=== PATIENT | male | born 1950 | race Caucasian/White ===

== ENCOUNTER 2022-06-13 11:06 | Emergency (ER) | payer MEDICARE ==
[~2022-06-13] VITALS: Ht 193 cm; Wt 87.1 kg
[2022-06-13 12:00] VITALS: BP 130/73
[2022-06-13] MEDS ORDERED: SODIUM CHLORIDE 0.9% 1,000 ML IV ONE (12:45)
[2022-06-13] MEDS ORDERED: MECLIZINE HCL 25 MG TAB PO ONE (12:45)
== END 2022-06-13 14:08 | disposition left against medical advice (07) ==
LOC: ER 11:06
DX: R42 Dizziness and giddiness (principal); Z53.21 Procedure and treatment not carried out due to patient leaving prior to being seen by health care provider
CPT/HCPCS: 93005

== ENCOUNTER → 2023-09-26 | Outpatient (CLI) | payer MEDICARE ==
[~2023-09-26] VITALS: Ht 193 cm; Wt 86.2 kg
[~2023-09-26] MED LIST: REGADENOSON 0.4 MG/5 ML SYRG IV ONE
== END | disposition home or self-care (01) ==
LOC: XYW 08:37
PROVIDERS: ATTEND Internal Medicine
DX: I44.0 Atrioventricular block, first degree (principal); R00.0 Tachycardia, unspecified; I25.9 Chronic ischemic heart disease, unspecified; R07.9 Chest pain, unspecified
CPT/HCPCS: 78452; 93017; A9500; J2785

== ENCOUNTER → 2023-11-12 | Outpatient (CLI) | payer MEDICARE ==
[2023-11-12 09:42] LABS: Basophils # (auto) 0.1 10 ^3/uL (0-0.2); Eosinophils # (auto) 0.2 10 ^3/uL (0-0.8); Hemoglobin 15.2 g/dL (13.5-17.5); Lymphocytes # (auto) 2.2 10 ^3/uL (0.4-5.4); Neutrophils # (auto) 4.5 10 ^3/uL (1.6-8.6)
[2023-11-12 09:44] LABS: Basophils % (auto) 0.7 % (0.0-2.0); Lymphocytes % (auto) 27.9 % (10.0-50.0); Mean Corpuscular Hemoglobin 36.8 pg (28.0-32.0); Mean Corpuscular Hgb Conc. 35.4 g/dL (32.0-36.0); Monocytes # (auto) 0.9 10 ^3/uL (0-1.3); Monocytes % (auto) 11.3 % (0.0-12.0); Neutrophils % (auto) 57.1 % (37.0-80.0); Red Blood Cells 4.14 10^6/uL (4.5-5.90); Red Cell Distribution Width 12.7 % (11.8-14.3); White Blood Cell 7.8 10^3/uL (4.4-10.8)
[2023-11-12 10:58] LABS: Alanine Aminotransferase 35 U/L (7-40); Alkaline Phosphatase 72 U/L (46-116); Anion Gap 6 (5-15); BUN/Creatinine Ratio 11.6 (10.0-20.0); Blood Urea Nitrogen 10 mg/dL (9-23); Calcium 9.5 mg/dL (8.5-10.1); Carbon Dioxide 27 mmol/L (20-30); Chloride 101 mmol/L (98-107); Glucose 114 mg/dL (74-106); LDL Cholesterol 25 mg/dL (< 100); Potassium 4.5 mmol/L (3.5-5.1); Sodium 134 mmol/L (136-145); Triglycerides 29 mg/dL (< 150)
[2023-11-12 10:59] LABS: Albumin 4.4 g/dL (3.2-4.8); Aspartate Aminotransferase 25 U/L (13-40); Cholesterol 92 mg/dL (< 200); HDL Cholesterol 55 mg/dL (40-59)
[2023-11-12 11:00] LABS: Bilirubin, Total 0.4 mg/dL (0.2-1.0); Total Protein 6.7 g/dL (5.7-8.2)
== END | disposition home or self-care (01) ==
LOC: LAB 09:02
PROVIDERS: ATTEND Internal Medicine
DX: I10 Essential (primary) hypertension (principal); E78.5 Hyperlipidemia, unspecified; I25.10 Atherosclerotic heart disease of native coronary artery without angina pectoris; F17.200 Nicotine dependence, unspecified, uncomplicated
CPT/HCPCS: 36415; 80053; 80061; 83036; 85025

== ENCOUNTER → 2024-01-20 | Outpatient (CLI) | payer MEDICARE ==
[2024-01-20 10:36] LABS: Chloride 98 mmol/L (98-107); Potassium 5.1 mmol/L (3.5-5.1); Sodium 132 mmol/L (136-145)
[2024-01-20 10:37] LABS: Anion Gap 6 (5-15); Calcium 9.5 mg/dL (8.7-10.4); Carbon Dioxide 28 mmol/L (20-30)
[2024-01-20 10:42] LABS: BUN/Creatinine Ratio 14.6 (10.0-20.0); Blood Urea Nitrogen 14 mg/dL (9-23); Glucose 116 mg/dL (74-106)
[2024-01-20 14:10] LABS: Urine Bacteria NONE SEEN /hpf (None Seen); Urine Blood Negative /uL (Negative); Urine Clarity Clear (Clear); Urine Color Yellow (Yellow); Urine Mucus FEW (None Seen); Urine Protein, UAD TRACE (Negative); Urine Specific Gravity 1.019 (1.001-1.035); Urine Urobilinogen Normal (Negative); Urine WBC <1 /hpf (0 - 3); Urine pH 6.5 (5.0-8.0)
== END | disposition home or self-care (01) ==
LOC: LAB 10:08
PROVIDERS: ATTEND Internal Medicine
DX: I25.10 Atherosclerotic heart disease of native coronary artery without angina pectoris (principal); J43.9 Emphysema, unspecified
CPT/HCPCS: 36415; 80048; 81001

== ENCOUNTER → 2024-05-26 | Outpatient (CLI) | payer MEDICARE ==
[2024-05-26 11:46] LABS: Chloride 99 mmol/L (98-107); Potassium 4.4 mmol/L (3.5-5.1); Sodium 131 mmol/L (136-145)
[2024-05-26 11:47] LABS: Anion Gap 4 (5-15); Carbon Dioxide 28 mmol/L (20-30)
[2024-05-26 11:48] LABS: Calcium 9.7 mg/dL (8.5-10.1)
[2024-05-26 11:52] LABS: BUN/Creatinine Ratio 16.9 (10.0-20.0); Blood Urea Nitrogen 15 mg/dL (9-23); Glucose 114 mg/dL (74-106)
== END | disposition home or self-care (01) ==
LOC: LAB 10:52
PROVIDERS: ATTEND Internal Medicine
DX: I10 Essential (primary) hypertension (principal); J44.9 Chronic obstructive pulmonary disease, unspecified; M47.9 Spondylosis, unspecified; I25.10 Atherosclerotic heart disease of native coronary artery without angina pectoris; E55.9 Vitamin D deficiency, unspecified
CPT/HCPCS: 36415; 80048; 82306; 82607

== ENCOUNTER 2024-06-25 17:43 | Emergency (ER) | payer MEDICARE ==
[~2024-06-25] VITALS: Ht 193 cm; Wt 88.5 kg
[2024-06-25 17:50] VITALS: BP 120/68; PULSE 60; RESP 18; O2SAT 95
[2024-06-25 19:11] LABS: Hemoglobin 13.8 g/dL (13.5-17.5); Lymphocytes # (auto) 2.6 10 ^3/uL (0.4-5.4); Neutrophils # (auto) 4.9 10 ^3/uL (1.6-8.6); White Blood Cell 8.8 10^3/uL (4.4-10.8)
[2024-06-25 19:13] LABS: Basophils # (auto) 0 10 ^3/uL (0-0.2); Basophils % (auto) 0.5 % (0.0-2.0); Eosinophils # (auto) 0.1 10 ^3/uL (0-0.8); Eosinophils % (auto) 1.7 % (0.0-7.0); Hematocrit 38.8 % (41.0-53.0); Lymphocytes % (auto) 30.1 % (10.0-50.0); Mean Corpuscular Hemoglobin 36.2 pg (28.0-32.0); Mean Corpuscular Hgb Conc. 35.5 g/dL (32.0-36.0); Mean Corpuscular Volume 102.1 fL (80.0-100.0); Monocytes # (auto) 1.1 10 ^3/uL (0-1.3); Neutrophils % (auto) 55.7 % (37.0-80.0)
== END 2024-06-25 18:42 | disposition left against medical advice (07) ==
LOC: ER 17:43
DX: S41.112A Laceration without foreign body of left upper arm, initial encounter (principal); Z53.21 Procedure and treatment not carried out due to patient leaving prior to being seen by health care provider; W26.8XXA Contact with other sharp object(s), not elsewhere classified, initial encounter; Y93.89 Activity, other specified; Y92.89 Other specified places as the place of occurrence of the external cause; Y99.8 Other external cause status
CPT/HCPCS: 36415; 85025

== ENCOUNTER 2024-06-27 07:59 | Emergency (ER) | payer MEDICARE ==
[~2024-06-27] VITALS: Ht 193 cm; Wt 88.4 kg
[2024-06-27] MEDS ORDERED: CEPH500C PO (09:18)
[2024-06-27 09:30] VITALS: BP 128/64; PULSE 54; RESP 54; TEMP 98.2; O2SAT 99
== END 2024-06-27 09:39 | disposition home or self-care (01) ==
LOC: ER 07:59
DX: S51.812A Laceration without foreign body of left forearm, initial encounter (principal); K21.9 Gastro-esophageal reflux disease without esophagitis; E78.5 Hyperlipidemia, unspecified; I10 Essential (primary) hypertension; Z48.01 Encounter for change or removal of surgical wound dressing; X58.XXXA Exposure to other specified factors, initial encounter; Y93.89 Activity, other specified; Y92.89 Other specified places as the place of occurrence of the external cause; Y99.8 Other external cause status

== ENCOUNTER → 2024-08-17 | Outpatient (CLI) | payer MEDICARE ==
[~2024-08-17] MED LIST changes: +CEPH500C PO; -REGADENOSON 0.4 MG/5 ML SYRG IV ONE
[2024-08-17 14:06] LABS: Triglycerides 37 mg/dL (< 150)
[2024-08-17 14:07] LABS: LDL Cholesterol 23 mg/dL (< 100)
[2024-08-17 14:08] LABS: Cholesterol 97 mg/dL (< 200); HDL Cholesterol 58 mg/dL (40-59)
== END | disposition home or self-care (01) ==
LOC: LAB 11:35
PROVIDERS: ATTEND Internal Medicine
DX: J44.9 Chronic obstructive pulmonary disease, unspecified (principal); M47.9 Spondylosis, unspecified; J43.9 Emphysema, unspecified; I10 Essential (primary) hypertension; Z79.899 Other long term (current) drug therapy
CPT/HCPCS: 36415; 80061; 83036; 84153

== ENCOUNTER → 2024-09-09 | Outpatient (CLI) | payer MEDICARE ==
[2024-09-09 13:30] LABS: Basophils # (auto) 0 10 ^3/uL (0-0.2); Basophils % (auto) 0.8 % (0.0-2.0); Eosinophils # (auto) 0.2 10 ^3/uL (0-0.8); Eosinophils % (auto) 2.6 % (0.0-7.0); Hematocrit 39.1 % (41.0-53.0); Hemoglobin 13.3 g/dL (13.5-17.5); Lymphocytes # (auto) 1.5 10 ^3/uL (0.4-5.4); Mean Corpuscular Hemoglobin 34.8 pg (28.0-32.0); Mean Corpuscular Hgb Conc. 34.1 g/dL (32.0-36.0); Mean Corpuscular Volume 102.1 fL (80.0-100.0); Monocytes % (auto) 15.7 % (0.0-12.0); Neutrophils # (auto) 3.7 10 ^3/uL (1.6-8.6); Neutrophils % (auto) 56.9 % (37.0-80.0); Nucleated Red Blood Cells % 0.2 %; Platelet Count (auto) 228 10^3/uL (140-450); Red Blood Cells 3.83 10^6/uL (4.5-5.90); Red Cell Distribution Width 13.2 % (11.8-14.3); White Blood Cell 6.4 10^3/uL (4.4-10.8)
[2024-09-09 14:05] LABS: Erythrocyte Sedimentation Rate 16 mm/hr (0-20)
== END | disposition home or self-care (01) ==
LOC: LAB 12:12
PROVIDERS: ATTEND Internal Medicine
DX: J44.9 Chronic obstructive pulmonary disease, unspecified (principal); M47.9 Spondylosis, unspecified
CPT/HCPCS: 36415; 82550; 85025; 85652

== ENCOUNTER 2024-11-25 22:39 | Inpatient (IN) | payer MEDICARE ==
[~2024-11-25] VITALS: Ht 198.1 cm; Wt 157.0 kg
--- NOTE | 2024-11-25 22:55 | ED.PDOC ---
HPI Comments A 74 year old male presents to the ED with a chief complaint of chest pain onset 2 days. Patient states he had an ablation done at [place] on Saturday and since then the patient has been experiencing chest pain with shortness of breath. Patient noticed pain worsen today, rates pain 10/10. He took a baby Aspirin this morning. Past medical history of HTN, HLD, GERD. No other symptoms or modifying factors present at this time. Chief Complaint: Chest Pain Time Seen by MD: 22:44 Primary Care Provider: YUDY Reviewed Notes: Medications, Allergies Allergies: Coded Allergies: NO KNOWN ALLERGIES (Unverified , 06/13/22) Home Meds Active Scripts Amoxicillin & Pot Clavulanate (AUGMENTIN TABLET) 875 Mg Tb, 875 MG PO BID for 3 Days, #6 TAB Prov:CLAUDY LANG RESIDENT 11/29/24 Reported Medications Isosorbide Dinitrate (Isosorbide Dinitrate) 10 Mg Tab, 10 MG PO BID, TAB 11/27/24 Enalapril Maleate (Enalapril Maleate) 20 Mg Tab, 20 MG PO BID, TAB 11/27/24 Clopidogrel Bisulfate (CLOPIDOGREL) 75 Mg Tab, 75 MG PO DAILY, TAB 11/27/24 Atorvastatin Calcium (ATORVASTATIN CALCIUM) 40 Mg Tab, 40 MG PO DAILY, TAB 11/27/24 Hydrochlorothiazide (Hydrochlorothiazide) 12.5 Mg Tab, 12.5 MG PO DAILY, TAB 11/27/24 Apixaban Base (ELIQUIS) 5 Mg Tab, 5 MG PO BID, TAB 11/27/24 Amlodipine Besylate (Amlodipine Besylate) 5 Mg Tab, 5 MG PO BID, MG 11/27/24 Amiodarone Hcl (Amiodarone Hcl) 200 Mg Tab, 200 MG PO DAILY 11/27/24 Pantoprazole Sodium Sesquihydr (Pantoprazole Sodium) 40 Mg Tab, 40 MG PO BID, TAB 11/27/24 Information Source: Patient Mode of Arrival: Ambulatory Severity: Moderate Timing: Days Duration: Since onset Prehospital treatment: None Location: Chest (L) Radiation: Shoulder (L) Cardiac Risk Factors: Hyperlipidemia, HTN PE Risk Factors: Other (ablasion 2 dyasa go ) History of: Aspirin Associated Signs and Symptoms: SOB Past Medical History PAST MEDICAL HISTORY: GERD, High Lipids, HTN Surgical History: Denies all surgeries Family History Family History: Reviewed,noncontributory to illness Social History Smoker: Non-Smoker Alcohol: Denies ETOH Use Drugs: Denies Drug Use Lives In: Home Constitutional: denies: chills, diaphoresis, fatigue, fever, malaise, sweats, weakness, others EENTM: denies: blurred vision, double vision, ear bleeding, ear discharge, ear drainage, ear pain, ear ringing, eye pain, eye redness, hearing loss, mouth pain, mouth swelling, nasal discharge, nose bleeding, nose congestion, nose pain, photophobia, tearing, throat pain, throat swelling, voice changes, others Respiratory: reports: shortness of breath; denies: cough, hemoptysis, orthopnea, SOB at rest, SOB with excertion, stridor, wheezing, others Cardiovascular: reports: chest pain; denies: dizzy spells, diaphoresis, Dyspnea on exertion, edema, irregular heart beat, left arm pain, lightheadedness, palpitations, PND, syncope, others Gastrointestinal: denies: abdomen distended, abdominal pain, blood streaked bowels, constipated, diarrhea, dysphagia, difficulty swallowing, hematemesis, melena, nausea, poor appetite, poor fluid intake, rectal bleeding, rectal pain, vomiting, others Genitourinary: denies: burning, dysuria, flank pain, frequency, hematuria, incontinence, penile discharge, penile sore, pain, testicle pain, testicle swelling, urgency, others Neurological: denies: dizziness, fainting, headache, left sided numbness, left sided weakness, numbness, paresthesia, pre-existing deficit, right sided numbness, right sided weakness, seizure, speech problems, tingling, tremors, weakness, others Musculoskeletal: denies: back pain, gout, joint pain, joint swelling, muscle pain, muscle stiffness, neck pain, others Integumetry: denies: bruises, change in color, change in hair/nails, dryness, laceration, lesions, lumps, rash, wounds, others Allergic/Immunocompromised: denies: Difficulty Healing, Frequent Infections, Hives, Itching, others Hematologic/Lymphatic: denies: anemia, blood clots, easy bleeding, easy bruising, swollen glands, others Endocrine: denies: excessive hunger, excessive sweating, excessive thirst, excessive urination, flushing, intolerance to cold, intolerance to heat, unexplained weight gain, unexplained weight loss, others Psychiatric: denies: anxiety, bipolar disorder, depression, hopeless, panic disorder, schizophrenia, sleepless, suicidal, others All Other Systems: Reviewed and Negative Physical Exam General Appearance: No Apparent Distress, Normal HEENT: Normal ENT Inspection, Pharynx Normal, TMs Normal Neck: Full Range of Motion, Non-Tender, Normal, Normal Inspection Respiratory: Chest Non-Tender, Lungs Clear, No Accessory Muscle Use, No Respiratory Distress, Normal Breath Sounds Cardiovascular: No Edema, No JVD, No Murmur, No Gallop, Normal Peripheral Pulses, Regular Rate/Rhythm Breast Exam: Deferred Gastrointestinal: No Organomegaly, Non Tender, No Pulsatile Mass, Normal Bowel Sounds, Soft Genitalia: Deferred Pelvic: Deferred Rectal: Deferred Extremities: No calf tenderness, Normal capillary refill, Normal inspection, Normal range of motion, Non-tender, No pedal edema Musculoskeletal : Apperance: Normal Neurologic: Alert, ambulance paramedic II-XII nml as Tested, No Motor Deficits, Normal Affect, Normal Mood, No Sensory Deficits Cerebellar Function: Normal Reflexes: Normal Skin: Dry, Normal Color, Warm Lymphatic: No Adenopathy Was a procedure done? Was a procedure done?: No CP Differential Dx Differential Diagnosis: MAT, VA Differential Diagnosis: CHF, HTN Essential, HTN Accelerated Differential Diagnosis: Gastritis, Myocardial Infarction, Pericarditis X-Ray, Labs, Meds, VS Vital Signs Date Time Temp Pulse Resp B/P (MAP) Pulse Ox O2 Delivery O2 Flow Rate FiO2 11/26/24 01:12 126/53 11/26/24 01:00 72 19 126/53 (77) 94 11/26/24 00:08 134/60 11/26/24 00:00 98.7 73 18 134/60 (84) 94 98.7 11/26/24 00:00 73 18 94 Nasal Cannula* 2 28 11/26/24 00:00 69 11/25/24 23:41 74 11/25/24 23:08 98.5 79 26 147/74 (98) 83 11/25/24 22:42 76 Lab Test 11/25/24 23:45 11/25/24 22:47 Range/Units Troponin I High Sensitivity 273 *H 280 *H </=54 ng/L White Blood Count 11.3 H 4.4-10.8 10^3/uL Red Blood Count 3.59 L 4.5-5.90 10^6/uL Hemoglobin 11.7 L 13.5-17.5 g/dL Hematocrit 35.4 L 41.0-53.0 % Mean Corpuscular Volume 98.4 80.0-100.0 fL Mean Corpuscular Hemoglobin 32.7 H 28.0-32.0 pg Mean Corpuscular Hemoglobin Concent 33.2 32.0-36.0 g/dL Red Cell Distribution Width 14.8 H 11.8-14.3 % Platelet Count 164 140-450 10^3/uL Mean Platelet Volume 7.7 6.9-10.8 fL Neutrophils (%) (Auto) 65.2 37.0-80.0 % Lymphocytes (%) (Auto) 17.6 10.0-50.0 % Monocytes (%) (Auto) 16.4 H 0.0-12.0 % Eosinophils (%) (Auto) 0.2 0.0-7.0 % Basophils (%) (Auto) 0.6 0.0-2.0 % Neutrophils # (Auto) 7.4 1.6-8.6 10 ^3/uL Lymphocytes # (Auto) 2.0 0.4-5.4 10 ^3/uL Monocytes # (Auto) 1.9 H 0-1.3 10 ^3/uL Eosinophils # (Auto) 0 0-0.8 10 ^3/uL Basophils # (Auto) 0.1 0-0.2 10 ^3/uL Nucleated Red Blood Cells 0.0 % Sodium Level 131 L 136-145 mmol/L Potassium Level 4.1 3.5-5.1 mmol/L Chloride Level 98 98-107 mmol/L Carbon Dioxide Level 27 20-31 mmol/L Anion Gap 6 5-15 Blood Urea Nitrogen 18 9-23 mg/dL Creatinine 0.88 0.700-1.30 mg/dL Glomerular Filtration Rate Calc 90 >90 mL/min BUN/Creatinine Ratio 20.5 H 10.0-20.0 Serum Glucose 114 H 74-106 mg/dL Lactic Acid Level 0.9 0.4-2.0 mmol/L Calcium Level 9.5 8.7-10.4 mg/dL [facility] [id number] [facility] [address] Ph: [phone] DIAGNOSTIC IMAGING Diagnostic Imaging Report : [id number] Signed PATIENT: SATYA RIVERA ACCT: [id number] UNIT: [id number] : 1950 LOC: ER ROOM / BED: / AGE / SEX: 74 / M ADM STATUS: REG ER SERVICE 46 ORDERING PHYSICIAN: IOANA CURIEL MD PROCEDURE(s): CXR2 - CHEST TWO VIEWS ROUTINE REASON: cough ORDER NUMBER(s): [id number], ACCESSION NUMBER(s): [id number] EXAM: XY CHEST TWO VIEWS ROUTINE CLINICAL HISTORY: cough TECHNIQUE: Frontal and lateral view of the chest WID: COMPARISON: None FINDINGS: Lines and tubes: There is a left-sided dual lead pacemaker with the tips projecting over the right atrium and right ventricle. Chest: The heart size and pulmonary vasculature is within normal limits. Calcified plaque projects over the aortic arch. Hyperexpansion of the lungs with diffuse interstitial prominence. The osseous structures are grossly intact. Mild multilevel thoracic spondylosis. IMPRESSION: 1. Hyperexpansion of the lungs which can be seen in the setting of COPD/ emphysema. 2. Interstitial prominence in the lungs which could be due to fibrosis / sc arring, atypical infection, or edema. ATED BY: SRI BELLE MD DICTATED DATE/TIME: 11/26/2414 SIGNED BY: SRI BELLE MD SIGNED DATE/TIME: 11/26/2414 CC: Time of 1ST Reevaluation: 23:14 Reevaluation 1ST: Unchanged Patient Education/Counseling: Diagnosis, Treatment, Prognosis Family Education/Counseling: No Family Present Additional Information I reviewed the following notes from patient's past medical encounters: The following tests were ordered, and results were reviewed by me: TROP, TROP, TROP, EKG, EKG, EKG, BMP, CBC, XY CHEST 2 VIEWS I reviewed and agreed with the following test results read by other providers: XY CHEST 2 VIEWS I discussed treatment and results with medical personnel and: patient Departure 1 Departure Time of Disposition: 21:13 (Patient presented with chest pain that was concerning for possible STEMI, ACS, PE, Pneumonia, Muscle Strain, COPD, Disse ction. Data: 1. I ordered and reviewed the result of at least 3 labs including a CBC, BMP, and Troponin. 2. I independently interpreted the following tests: EKG which shows sinus arrhythmia and Chest X-ray which shows benign chest.Risk:This patient has a high risk of morbidity due to further diagnostic testing or treatment and may suffer from an acute cardiac or respiratory disorder. Workup reveals concern for ACS and patient should be admitted for further workup and possible expert consultation. ) Impression: Primary Impression: Acute chest pain Disposition: ADMITTED INPATIENT Admit to: Med Surg Condition: Serious e-Prescriptions Amoxicillin & Pot Clavulanate (AUGMENTIN TABLET) 875 Mg Tb 875 MG PO BID for 3 Days, #6 TAB Prov: CLAUDY LANG RESIDENT 11/29/24 Critical Care Note Critical Care Time?: Yes Critical care comment: Acute chest pain Authorized and Performed by: Ioana Curiel MD Total critical care time: Approximately 32 minutes Due to a high probability of clinically significant, life threatening deterioration, the patient required my highest level of preparedness to intervene emergently and I personally spent this critical care time directly and personally managing the patient. This critical care time included obtaining a history; examining the patient; pulse oximetry; ordering and review of studies; arranging urgent treatment with development of a management plan; evaluation of patient's response to treatment; frequent reassessment; and, discussions with other providers. This critical care time was performed to assess and manage the high probability of imminent, life-threatening deterioration that could result in multi-organ failure. It was exclusive of separately billable procedures and treating other patients and teaching time. Please see my other sections and the rest of the note for further information on patient assessment and treatment. Stability Stability form required: No Heart Score Heart Score: Heart Score Response (Comments) Value History Highly Suspicious 2 EKG Repolarization Disturb 1 Age >65 2 Risk Factors >3 or Hx ASHD 2 Troponin >3 x's Normal limit 2 Total 9 I personally scribed for IOANA CURIEL MD ([email or web address]) on 11/25/24 at 22:55. Electronically submitted by Virginia Wellington ([email or web address]). I personally scribed for IOANA CURIEL MD ([email or web address]) on 11/25/24 at 23:05. Electronically submitted by Virginia Wellington ([email or web address]). I personally scribed for IOANA CURIEL MD ([email or web address]) on 11/26/24 at 00:19. Electronically submitted by Virginia Wellington ([email or web address]). IOANA CURIEL MD Nov 25, 2024 22:55
[2024-11-25 23:02] LABS: Basophils # (auto) 0.1 10 ^3/uL (0-0.2); Basophils % (auto) 0.6 % (0.0-2.0); Eosinophils # (auto) 0 10 ^3/uL (0-0.8); Eosinophils % (auto) 0.2 % (0.0-7.0); Hematocrit 35.4 % (41.0-53.0); Hemoglobin 11.7 g/dL (13.5-17.5); Lymphocytes % (auto) 17.6 % (10.0-50.0); Mean Corpuscular Hemoglobin 32.7 pg (28.0-32.0); Mean Corpuscular Hgb Conc. 33.2 g/dL (32.0-36.0); Mean Corpuscular Volume 98.4 fL (80.0-100.0); Monocytes # (auto) 1.9 10 ^3/uL (0-1.3); Monocytes % (auto) 16.4 % (0.0-12.0); Neutrophils # (auto) 7.4 10 ^3/uL (1.6-8.6); Neutrophils % (auto) 65.2 % (37.0-80.0); Platelet Count (auto) 164 10^3/uL (140-450); Red Blood Cells 3.59 10^6/uL (4.5-5.90); Red Cell Distribution Width 14.8 % (11.8-14.3); White Blood Cell 11.3 10^3/uL (4.4-10.8)
[2024-11-25 23:15] LABS: Chloride 98 mmol/L (98-107); Potassium 4.1 mmol/L (3.5-5.1)
[2024-11-25 23:16] LABS: Anion Gap 6 (5-15); Carbon Dioxide 27 mmol/L (20-31)
[2024-11-25 23:17] LABS: Calcium 9.5 mg/dL (8.7-10.4)
[2024-11-25 23:21] LABS: BUN/Creatinine Ratio 20.5 (10.0-20.0); Blood Urea Nitrogen 18 mg/dL (9-23)
[2024-11-25 23:23] LABS: Glucose 114 mg/dL (74-106); Sodium 131 mmol/L (136-145)
[2024-11-26] VITALS (12 sets, daily range): BP systolic 107–134; BP diastolic 58–60; PULSE 70–86; RESP 12–19; TEMP 98.3–98.5; O2SAT 93–99
[2024-11-26] MEDS: ASPirin 81 mg TAB PO ONE (00:08)
[2024-11-26] MEDS: NITROGLYCERIN 0.4 MG SL TAB SL ONE (00:08)
--- NOTE | 2024-11-26 00:17 | DVH ---
EXAM: XY CHEST TWO VIEWS ROUTINE CLINICAL HISTORY: cough TECHNIQUE: Frontal and lateral view of the chest WID: COMPARISON: None FINDINGS: Lines and tubes: There is a left-sided dual lead pacemaker with the tips projecting over the right at rium and right ventricle. Chest: The heart size and pulmonary vasculature is within normal limits. Calcified plaque projects over the aortic arch. Hyperexpansion of the lungs with diffuse interstitial prominence. The osseous structures are grossly intact. Mild multilevel thoracic spondylosis. IMPRESSION: 1. Hyperexpansion of the lungs which can be seen in the setting of COPD/ emphysema. 2. Interstitial prominence in the lungs which could be due to fibrosis / scarring, atypical infection , or edema.
--- NOTE | 2024-11-26 01:27 | DVHHPRES ---
History of Present Illness Resident Creating Document: CAITLIN SALAZAR RESIDENT History of Present Illness This is a 74-year-old male with past medical history of hypertension, hyperlipidemia, atrial fibrillation with status post ablation, status post pacemaker, COPD presented to the ED with a chief complaint of chest pain and s hortness of breath since morning prior to this admission. The patient stated that he underwent cardiac ablation for atrial fibrillation in [place] 11/23/20 and after the procedure he has been experiencing intermittent sharp stabbing chest pain, 8/10 radiate to the left shoulder and arm and associated with shortness of bed which was getting worse that prompted this visit. He is complaining of fever, malaise, body pain, runny nose cough with greenish sputum followed by 8-10 episodes of hemoptysis and epistaxis since Saturday. The patient denies headache dizziness, abdominal pain, nausea, vomiting, hematuria, melena, dysuria, sit contact or any change in bowel movement. He also complains of big bruise in the right groin after the angiogram procedure in last Saturday. PCP: Dr. Hendricks Supervisor Fabrication Department: Dr. Hauser Past Medical History Hypertension, hyperlipidemia, atrial fibrillation with status post ablation, status post pacemaker, COPD Past Surgical History Cardiac ablation, pacemaker implantation, cholecystectomy, laparotomy for peritonitis Family History None Past Social History Lives with family Nonsmoker, drinks 4 beers and few glasses of kirti in every weekend and never tried any drugs Review of Systems Constitutional: Yes: Fever, Weakness, Malaise; No: Chills, Sweats, Other Eyes: No: Pain, Vision change, Conjunctivae inflammation, Eyelid inflammation, Other, Redness ENT: No: Ear pain, Ear discharge, Nose pain, Nose discharge, Nose congestion, Mouth pain, Mouth swelling, Throat pain, Throat swelling, Other Respiratory: Cough, Shortness of breath, Wheezing, Hemoptysis, Sputum; No: Dry, SOB with excertion, Pleuritic Pain, Wheezing, Other Cardiovascular: Chest Pain; No: Palpitations, Orthopnea, Paroxysmal Noc. Dyspnea, Edema, Lt Headedness, Other Gastrointestinal: No: Nausea, Vomiting, Abdominal Pain, Diarrhea, Constipation, Melena, Hematochezia, Other Genitourinary: No Dysuria, No Frequency, No Incontinence, No Hematuria, No Retention, No Other Musculoskeletal: No: other, neck pain, shoulder pain, arm pain, back pain, hand pain, leg pain, foot pain Skin: Bruising; No: Rash, Lesions, Jaundice, Other Neurological: No: Weakness, Numbness, Incoordination, Change in speech, Confusion, Seizures, Other Allergies: Coded Allergies: NO KNOWN ALLERGIES (Unverified , 06/13/22) Medications Current Medications Medications Dose Ordered Sig/Gordy Route Start Time Stop Time Status Last Admin Dose Admin Nitroglycerin 0.4 mg Q5MINP PRN SL 11/26/24 01:30 UNV Morphine Sulfate 2 mg Q30M PRN IV 11/26/24 01:30 UNV Methylprednisolone Sodium Succinate 40 mg BID IV 11/26/24 10:00 UNV Cefepime HCl 50 ml @ 12.5 mls/hr DAILY IV 11/26/24 10:00 UNV Vancomycin HCl 0 ml @ 0 mls/hr UD IV 11/26/24 01:30 UNV Albuterol 2.5 mg Q6HR NEB 11/26/24 06:00 Ipratropium Ambler 0.5 mg Q6HR NEB 11/26/24 06:00 Furosemide 20 mg DAILY IV 11/26/24 10:00 UNV Exam Vital Signs Vital Signs Date Time Temp Pulse Resp B/P (MAP) Pulse Ox O2 Delivery O2 Flow Rate FiO2 11/26/24 01:12 126/53 11/26/24 00:00 98.7 73 18 94 98.7 11/26/24 00:00 Nasal Cannula* 2 28 Exam Physical examination: General Appearance: Alert, Oriented X3, Cooperative, mild distress, 3 L oxygen through nasal cannula HEENT: Atraumatic, PERRLA, EOMI, Mucous membrane moist/pink Respiratory: Bilateral wheezing and crackles in both lung field. Cardiovascular: Regular rate, Normal S1, Normal S2, No murmurs, no chest wall tenderness Abdominal: Normal bowel sounds, Soft, No tenderness, No hepatospenomegaly, No masses Extremities: No clubbing, No cyanosis, No edema, Normal pulses, No tenderness/swelling Skin: Big Bruise in the groin after the angiogram and few bruises in bilateral forearm, No rashes, No breakdown, No significant lesion Neuro: Normal gait, Normal speech, Strength at 5/5 X4 ext, Normal tone, Sensation intact, grossly intact cranial nerves. Psych/Mental Status: Mental status NL, Mood NL Labs/Xrays Labs Test 11/25/24 23:45 11/25/24 22:47 Range/Units Troponin I High Sensitivity 273 *H </=54 ng/L White Blood Count 11.3 H 4.4-10.8 10^3/uL Red Blood Count 3.59 L 4.5-5.90 10^6/uL Hemoglobin 11.7 L 13.5-17.5 g/dL Hematocrit 35.4 L 41.0-53.0 % Mean Corpuscular Volume 98.4 80.0-100.0 fL Mean Corpuscular Hemoglobin 32.7 H 28.0-32.0 pg Mean Corpuscular Hemoglobin Concent 33.2 32.0-36.0 g/dL Red Cell Distribution Width 14.8 H 11.8-14.3 % Platelet Count 164 140-450 10^3/uL Mean Platelet Volume 7.7 6.9-10.8 fL Neutrophils (%) (Auto) 65.2 37.0-80.0 % Lymphocytes (%) (Auto) 17.6 10.0-50.0 % Monocytes (%) (Auto) 16.4 H 0.0-12.0 % Eosinophils (%) (Auto) 0.2 0.0-7.0 % Basophils (%) (Auto) 0.6 0.0-2.0 % Neutrophils # (Auto) 7.4 1.6-8.6 10 ^3/uL Lymphocytes # (Auto) 2.0 0.4-5.4 10 ^3/uL Monocytes # (Auto) 1.9 H 0-1.3 10 ^3/uL Eosinophils # (Auto) 0 0-0.8 10 ^3/uL Basophils # (Auto) 0.1 0-0.2 10 ^3/uL Nucleated Red Blood Cells 0.0 % Sodium Level 131 L 136-145 mmol/L Potassium Level 4.1 3.5-5.1 mmol/L Chloride Level 98 98-107 mmol/L Carbon Dioxide Level 27 20-31 mmol/L Anion Gap 6 5-15 Blood Urea Nitrogen 18 9-23 mg/dL Creatinine 0.88 0.700-1.30 mg/dL Glomerular Filtration Rate Calc 90 >90 mL/min BUN/Creatinine Ratio 20.5 H 10.0-20.0 Serum Glucose 114 H 74-106 mg/dL Calcium Level 9.5 8.7-10.4 mg/dL Assessment/Plan Assessment/Plan Assessment and plan: # Chest pain s/p cardiac ablation, rule out ACS # Possible NSTEMI type 2 - EKG revealed AV paced rhythm and RBBB -Troponin trends are 280>273>270 - Ordered echo - Consulted cardiology # Acute respiratory failure due to acute exacerbation of COPD - chest x-ray revealed hyperexpansion with interstitial prominence - BNP is elevated - IV methylprednisolone 125 mg once - IV methylprednisolone 40 mg b.i.d. - IV Lasix 20 mg once - IV Lasix 20 mg daily - Duoneb with albuterol and ipratropium q.6 hours # Community-acquired Gram-positive/Gram-negative pneumonia - Chest x-ray revealed hyperexpansion with interstitial prominence - Cefepime 2 g IV daily and IV vancomycin as per pharmacy # Chronic atrial fibrillation, status post cardiac ablation with secondary hypercoagulable state - Hold Eliquis because of the history of hemoptysis and epistaxis - Ordered PT/INR # Prediabetes, HbA1C 6 - Counseled patient regarding low carb diet, lifestyle modification and physical exercise. # PUD prophylaxis - Protonix 40 mg p.o. daily # DVT prophylaxis - Hold due to the possibility of the bleeding Code status discussed with the patient for more than 17 minutes full code Plan discussed with Dr. Newton Plan discussed with: Patient, Other My Orders Orders - CAITLIN SALAZAR RESIDENT Procedure Category Date Status Time Admit ADMIT 11/26/24 Transmitted 01:17 Nitroglycerin [facility] 11/26/24 Logged Sublingual (Ntrostat 01:30 Morphine Sulfate [facility] 11/26/24 Logged Injection 01:30 Oxygen By Nasal RT 11/26/24 Transmitted Cannula 01:17 Contact Lens Inspector For SHAHANA 11/26/24 In Process 24 Hours 01:17 Rhythm Strips Once [facility] 11/26/24 In Process Every Shift 01:17 B-Type Natriuretic LAB 11/26/24 Logged Peptide 01:17 Echo 2d Mode Cardiac US 11/26/24 Logged DOP 01:17 Methylprednisolone [facility] 11/26/24 Logged Sod Succ (Solu Medrol 01:30 Methylprednisolone [facility] 11/26/24 Logged Sod Succ (Solu Medrol 10:00 Cefepime 2gm/50ml Ns PHA 11/26/24 Logged (Maxipime 2gm/50ml) 10:00 Vancomycin Per PHA 11/26/24 Logged Pharmacy 01:30 Albuterol Medneb [facility] 11/26/24 In Process (Ventolin Medneb) 06:00 Ipratropium Medneb [facility] 11/26/24 In Process (Atrovent Medneb) 06:00 Respiratory Culture LIN 11/26/24 Logged W/ Gs 01:23 Blood Culture LIN 11/26/24 Logged 01:23 Lactic Acid W/ Reflex LAB 11/26/24 Logged Order 01:23 Furosemide Injection [facility] 11/26/24 In Process (Lasix Injection) 01:30 Furosemide Injection PHA 11/26/24 Logged (Lasix Injection) 10:00 Urinalysis LAB 11/26/24 Logged 01:23 Drug Screen LAB 11/26/24 Logged 01:23 Blood Alcohol LAB 11/26/24 Logged 01:23 Complete Blood Count LAB 11/26/24 Transmitted 04:00 Date of Service: Nov 26, 2024 Billing Provider: MARGARITA NEWTON MD Common Visit Codes: 30147-[id number] INP/OBS CARE (HIGH) Secondary Visit Codes: [id number]-[id number] CARE PLAN 30 MINUTES CAITLIN SALAZAR RESIDENT Nov 26, 2024 01:27 MARGARITA NEWTON MD Nov 26, 2024 11:50
[2024-11-26] MEDS ORDERED: NITROGLYCERIN 0.4 MG SL TAB SL PRN (01:30)
[2024-11-26] MEDS ORDERED: VANCOMYCIN PER PHARMACY 0 MG IV SCH (01:30)
[2024-11-26] MEDS: methylPREDNISolone SOD SUCC 125 MG/2 ML VL IV ONE (01:38)
[2024-11-26] MEDS: FUROSEMIDE 20 MG/2 ML VIAL IV ONE (01:38)
[2024-11-26 02:09] LABS: INR 1.25 (0.9-1.15); Partial Thromboplastin Time 34.8 SEC (24.5-34.5)
[2024-11-26 02:13] LABS: Urine Bacteria None Seen /hpf (None Seen)
[2024-11-26 02:23] LABS: Urine Blood Negative /uL (Negative); Urine Clarity Clear (Clear); Urine Color Yellow (Yellow); Urine Protein, UAD TRACE (Negative); Urine Specific Gravity 1.021 (1.001-1.035); Urine Squamous Epithelial Cell FEW /hpf (<5); Urine Urobilinogen 8 mg/dL (Negative); Urine WBC 1 /hpf (0 - 3); Urine pH 7.5 (5.0-9.0)
[2024-11-26 03:06] LABS: COVID19 ANTIGEN SOFIA FIA NEGATIVE (NEGATIVE); Rapid Influenza A Negative (Negative); Rapid Influenza B Negative (Negative)
[2024-11-26 03:14] LABS: Basophils # (auto) 0 10 ^3/uL (0-0.2); Basophils % (auto) 0.3 % (0.0-2.0); Eosinophils # (auto) 0 10 ^3/uL (0-0.8); Eosinophils % (auto) 0.2 % (0.0-7.0); Hematocrit 32.6 % (41.0-53.0); Hemoglobin 11.3 g/dL (13.5-17.5); Lymphocytes # (auto) 1.1 10 ^3/uL (0.4-5.4); Lymphocytes % (auto) 11.2 % (10.0-50.0); Mean Corpuscular Hemoglobin 33.7 pg (28.0-32.0); Mean Corpuscular Hgb Conc. 34.6 g/dL (32.0-36.0); Mean Corpuscular Volume 97.3 fL (80.0-100.0); Monocytes # (auto) 1.2 10 ^3/uL (0-1.3); Monocytes % (auto) 12.4 % (0.0-12.0); Neutrophils # (auto) 7.6 10 ^3/uL (1.6-8.6); Neutrophils % (auto) 75.9 % (37.0-80.0); Platelet Count (auto) 157 10^3/uL (140-450); Red Blood Cells 3.35 10^6/uL (4.5-5.90); Red Cell Distribution Width 14.3 % (11.8-14.3)
[2024-11-26] MEDS: VANCOMYCIN 1GM/250ML KIT 250 ML IV SCH (03:23)
[2024-11-26 04:02] LABS: Opiate Scree,Urine Neg (NEGATIVE)
[2024-11-26 04:06] LABS: Amphetamine Screen, Urine Neg (NEGATIVE); Barbiturate Scree,Urine Neg (NEGATIVE); Benzodiazephine Screen, Urine Neg (NEGATIVE); Cannabinoid Screen, Urine Neg (NEGATIVE); Cocaine Screen, Urine Neg (NEGATIVE); Phencyclidine Screen, Urine Neg (NEGATIVE)
[2024-11-26] MEDS: PANTOPRAZOLE 40 MG TAB PO SCH (06:09)
--- NOTE | 2024-11-26 07:12 | ECG ---
[facility] Test Date: 2024-11-25 Test Time: 23:41:50 Pat Name: SATYA RIVERA Department: ER Room: [address] [place] [address] Gender: M Bioinformatics Associate: : 1950 Requested By: IOANA CURIEL Order Number: [id number] Reading MD: Ramin Page Measurements Intervals Lindsay Rate: 74 P: 20 AL: 61 QRS: 151 QRSD: 164 T: 25 QT: 439 QTc: 487 Interpretive Statements A-V dual-paced rhythm with some inhibition No further analysis attempted due to paced rhythm Electronically Signed On 11-26-2024 14:20:49 PST by Ramin Page Please click the below link to view image of tracing.
[2024-11-26] MEDS: ALBUTEROL SULF 2.5 MG/0.5ML(0.5%) NEB SOLN NEB SCH (09:08)
[2024-11-26] MEDS: IPRATROPIUM BROM 0.5 MG/2.5ML INH SOL NEB SCH (09:08)
[2024-11-26] MEDS: CEFEPIME 2GM/50ML NS 50 ML IV SCH (10:29)
[2024-11-26] MEDS: ASPirin-EC 81 mg tab PO SCH (10:29)
[2024-11-26] MEDS: FUROSEMIDE 20 MG/2 ML VIAL IV SCH (10:30)
--- NOTE | 2024-11-26 12:49 | ECG ---
[facility] Test Date: 2024-11-26 Test Time: 01:48:20 Pat Name: SATYA RIVERA Department: ER Room: [address] [place] [address] Gender: M Nutrition Director: : 1950 Requested By: IOANA CURIEL Order Number: [id number] Reading MD: Ramin Page Measurements Intervals [place]lings Rate: 74 P: 91 AK: 151 QRS: 168 QRSD: 164 T: 47 QT: 438 QTc: 486 Interpretive Statements Atrial-ventricular dual-paced complexes No further analysis attempted due to paced rhythm Electronically Signed On 11-26-2024 14:20:51 PST by Ramin Page Please click the below link to view image of tracing.
--- NOTE | 2024-11-26 14:56 | DVHPNRES ---
Progress Note Date Seen: Nov 26, 2024 Resident Creating Document: OMAR HERRON RESIDENT Medical Necessity Reason Pt with a Central, PICC or Fol: No Subjective Review of Systems Patient is a 74-year-old male with past medical history of hypertension, atrial fibrillation, dyslipidemia, COPD, s/p pacemaker, PCI in 2021, hepatitis-C, who came in due to chest pain. According to the patient, he has been having this chest pain for the last 1-2 weeks off and on. On patient completed an ablation procedure, later that evening he started experiencing discharge chest pain, 8/10 in intensity, sharp and aching pressure-like in quality and localized along the left chest with radiation to the middle of the chest and the left arm. Patient notes that nitroglycerin helped relieve her pain only partially. Patient has also been having shortness of breath, cough, hemoptysis (8 episodes), and epistaxis. Bruising is noted on bilateral forearms. Past surgical history: Appendectomy, cholecystectomy, back surgery Home medications: Eliquis 5 mg b.i.d., enalapril 20 mg b.i.d., atorvastatin 40 mg, amlodipine 5 mg b.i.d., hydrochlorothiazide 12.5 mg, omeprazole 20 mg, aspirin 81 mg Past Hospitalization: 1 week ago for ablation procedure Social & Personal history: Patient lives with his . Quit smoking 10 months ago, prior to that was smoking for 40 years, 20 years cigarettes in 20 years cigars: 3-4 cigars per day. Patient drinks alcohol 3-4 times per week, 3-4 beers with a shot of whiskey. Denies using drugs. Allergies: Denies Patient seen and examined at bedside. Patient is alert and oriented to time, place person and responding to all questions. General: Fatigue, fever, chills Eyes: No Pain, No Vision change, No Conjunctivae inflammation, No Eyelid inflammation, No Other, No Redness ENT: No Ear pain, No Ear discharge, No Nose pain, No Nose discharge, No Nose congestion, No Mouth pain, No Mouth swelling, No Throat pain, No Throat swelling, No Other Cardiovascular: No Chest Pain, No Palpitations, No Orthopnea, Dyspnea, No Edema, No Lt Headedness, No Other Respiratory: Productive Cough, No Dry, Shortness of breath, SOB with exertion, No Wheezing, Hemoptysis, No Pleuritic Pain, No Sputum, No Other Gastrointestinal: No Nausea, No Vomiting, No Abdominal Pain, No Diarrhea, No Constipation, No Melena, No Hematochezia, No Other Genitourinary: No Dysuria, No Frequency, No Incontinence, No Hematuria, No Retention, No Other Musculoskeletal: No other, No neck pain, No shoulder pain, No arm pain, No back pain, No hand pain, No leg pain, No foot pain Skin: No Rash, No Lesions, No Jaundice, Bruising, No Other Objective vital signs Vital Sign Date Time Temp Pulse Resp B/P (MAP) Pulse Ox O2 Delivery O2 Flow Rate FiO2 11/26/24 14:07 80 15 111/42 (65) 95 11/26/24 12:44 Nasal Cannula* 3 32 11/26/24 07:30 97.6 97.6 Total Intake and Output 11/25/24 11/25/24 11/26/24 15:00 23:00 07:00 Intake Total 500 ml Balance 500 ml medications Current Medications Medications Dose Ordered Sig/Gordy Route Start Time Stop Time Status Last Admin Dose Admin Nitroglycerin 0.4 mg Q5MINP PRN SL 11/26/24 01:30 Morphine Sulfate 2 mg Q30M PRN IV 11/26/24 01:30 Methylprednisolone Sodium Succinate 40 mg BID IV 11/27/24 10:00 Cefepime HCl 50 ml @ 12.5 mls/hr Q8H IV 11/26/24 10:00 11/26/24 10:29 12.5 MLS/HR Vancomycin HCl 0 ml @ 0 mls/hr UD IV 11/26/24 01:30 Albuterol 2.5 mg Q6HR NEB 11/26/24 06:00 11/26/24 12:44 2.5 MG Ipratropium [place] 0.5 mg Q6HR NEB 11/26/24 06:00 11/26/24 12:44 0.5 MG Furosemide 20 mg DAILY IV 11/26/24 10:00 11/26/24 10:30 20 MG Aspirin 81 mg DAILY PO 11/26/24 10:00 11/26/24 10:29 81 MG Atorvastatin Calcium 40 mg HS PO 11/26/24 22:00 Pantoprazole Sodium 40 mg DAILY@0630 IV 11/27/24 06:30 Vancomycin HCl 300 ml @ 200 mls/hr Q15H IV 11/26/24 18:00 Examination General Appearance: Cooperative. Well developed. Well nourished. NAD Head Exam: Normal inspection Neck Exam: Normal inspection. Non-tender. Normal alignment Pulmonary/Respiratory: Chest non-tender. Clear bilateral breath sounds, trace crackles, no wheezing. Cardiovascular/Chest: Regular rate and rhythm. No murmurs. No JVD. Peripheral Pulses: 2+ Radial (R). 2+ Radial (L). 2+ Pedal (R). 2+ Pedal (L) Abdominal Exam: Normal bowel sounds. Soft. normal abdomen, no visible veins, m id abdominal tenderness to palpation No hepatospenomegaly. No masses Ankle Exam: Negative ankle edema Lower extremities: 1+ lower extremity edema Neuro/Mental Status: A&O x4. Coherent. Thoughts/Psych: Normal thought pattern. Appropriate mood and affect. Good judgement and insight Skin Exam: Normal inspection. Normal color. Warm. Dry. Bruising on bilateral forearms laboratory and microbiology Laboratory Tests 11/26/24 02:45 11/25/24 22:47 Test 11/25/24 22:47 Range/Units Serum Glucose 114 H 74-106 mg/dL Microbiology Date/Time Source Procedure Growth Status 11/26/24 01:43 Nose MRSA Screen - Final Complete Labs and/or images reviewed: Labs reviewed by me, Image(s) reviewed by me Problem List/Assessment/Plan Problem List/Assessment/Plan Acute respiratory failure likely due to COPD exacerbation versus pneumonia Possible community-acquired pneumonia, Gram-positive versus Gram-negative COPD, possible exacerbation NSTEMI type 2 due to above - CXR: Hyperexpansion of the lungs which can be seen in the setting of COPD/ emphysema. Interstitial prominence in the lungs which could be due to fibrosis / scarring, atypical infection, or edema. - ipratropium albuterol med nebs - IV vancomycin, IV cefepime - IV methylprednisolone 40 mg b.i.d. Chest pain Hypercoagulable state secondary to Atrial fibrillation, s/p ablation S/p pacemaker - aspirin 81 mg - atorvastatin 40 mg - IV furosemide 20 mg Prediabetes, Hb A1c 6 - monitor PUD prophylaxis: protonix 40mg DVT prophylaxis: Levonox 40mg Goals of care: Full code, discussed for >16 minutes on 11/26/24 Plan discussed with patient Plan discussed with Dr. Zhu Plan discussed with: Patient, Spouse, Other (RN) My Orders My Orders Orders - OMAR HERRON Procedure Category Date Status Time Bladder Scan ORDERS 11/26/24 Transmitted 12:20 Date of Service: Nov 26, 2024 Billing Provider: ZHAO ZHU MD Common Visit Codes: [id number] INP/OBS CARE(HIGH) OMAR HERRON Nov 26, 2024 14:56 ZHAO ZHU MD Nov 27, 2024 09:10
[2024-11-26] MEDS: ATORVASTATIN 20 MG TAB PO SCH (21:54)
[2024-11-26] MEDS: HYDROcodone-ACET 5/325MG TAB PO PRN (21:56)
[2024-11-26] MEDS: MELATONIN 5 MG TAB PO ONE (21:56)
[2024-11-26] MEDS: VANCOMYCIN 1.5GM/300ML 300 ML IV SCH (22:00)
[2024-11-27] VITALS (16 sets, daily range): BP systolic 122–132; BP diastolic 58–63; PULSE 67–87; RESP 16–19; TEMP 97.7–98.5; O2SAT 92–99
[2024-11-27] MEDS: PANTOPRAZOLE 40 MG/10 ML VIAL INJ IV SCH (06:08)
[2024-11-27 07:03] LABS: Basophils # (auto) 0 10 ^3/uL (0-0.2); Basophils % (auto) 0.1 % (0.0-2.0); Eosinophils # (auto) 0 10 ^3/uL (0-0.8); Eosinophils % (auto) 0.1 % (0.0-7.0); Hematocrit 32.9 % (41.0-53.0); Hemoglobin 11.4 g/dL (13.5-17.5); Lymphocytes # (auto) 1.4 10 ^3/uL (0.4-5.4); Mean Corpuscular Hemoglobin 33.4 pg (28.0-32.0); Mean Corpuscular Hgb Conc. 34.7 g/dL (32.0-36.0); Mean Corpuscular Volume 96.2 fL (80.0-100.0); Monocytes # (auto) 1.5 10 ^3/uL (0-1.3); Monocytes % (auto) 12.2 % (0.0-12.0); Neutrophils # (auto) 9.1 10 ^3/uL (1.6-8.6); Neutrophils % (auto) 75.6 % (37.0-80.0); Platelet Count (auto) 164 10^3/uL (140-450); Red Blood Cells 3.42 10^6/uL (4.5-5.90); Red Cell Distribution Width 14.1 % (11.8-14.3)
[2024-11-27 07:09] LABS: Chloride 99 mmol/L (98-107)
[2024-11-27 07:10] LABS: Anion Gap 8 (5-15); Calcium 9.5 mg/dL (8.7-10.4); Carbon Dioxide 26 mmol/L (20-31)
[2024-11-27 07:12] LABS: Potassium 3.3 mmol/L (3.5-5.1); Sodium 133 mmol/L (136-145)
[2024-11-27 07:15] LABS: BUN/Creatinine Ratio 28.6 (10.0-20.0)
[2024-11-27 07:17] LABS: Blood Urea Nitrogen 24 mg/dL (9-23); Glucose 145 mg/dL (74-106)
[2024-11-27] MEDS: methylPREDNISolone SOD SUCC 40 MG/ML VL IV SCH (09:21)
--- NOTE | 2024-11-27 13:43 | DVHSR ---
APPROVED REPORT EXAM: Two-dimensional and M-mode echocardiogram with Doppler and color Doppler. INDICATION Tachycardia RISK FACTORS Height: 5'7", Weight: 111 DIMENSIONS LVDd4.9 (3.8-5.7cm)LA (2D)3.9 (1.9-4.0cm)Aortic Root (2.0-3.7cm) LVDs3.3 (2.5-4.0cm)LA (MM) (1.9-4.0cm)Aortic Cusp Exc (1.5-2.0cm) EF (%) 60.0 (55-70%)Rt. Atrium3.3 (1.9-4.0cm)Asc. Aorta cm Mitral Valve MitralMitral Stenosis E/A ratio0.02D MVAcm2 LEFT VENTRICLE The left ventricle is normal size. There is normal left ventricular wall thickness. The left ventricle is normal in structure and function. Left ventricle systolic function is normal. The Ejection Fraction is 55-60%. No regional wall motion abnormalities noted. RIGHT VENTRICLE The right ventricle is normal size. There is normal right ventricular wall thickness. The right ventricular systolic function is normal. ATRIA The left atrium size is normal. The right atrium size is normal. The interatrial septum is intact with no evidence for an atrial septal defect. MITRAL VALVE The mitral valve is normal in structure and function. There is no evidence of mitral valve prolapse. There is no mitral valve stenosis. There is no mitral valve regurgitation noted. PULMONIC VALVE The pulmonary valve is normal in structure and function. There is no pulmonic valvular regurgitation. There is no pulmonic valvular stenosis. TRICUSPID VALVE The tricuspid valve is normal in structure and function. There is no tricuspid valve regurgitation noted. There is no tricuspid valve prolapse or vegetation. There is no tricuspid valve stenosis. AORTIC VALVE The aortic valve is normal in structure and function. No aortic regurgitation is present. There is no aortic valvular stenosis. There is no aortic valvular vegetation. GREAT VESSELS The aortic root is normal in size. PERICARDIAL EFFUSION There is a no pericardial effusion. Other Information Quality : Technically LimitedRhythm : Technically limited study due to body habitus and patient position. Conclusion The left ventricle is normal size. The left ventricle is normal in structure and function. Left ventricle systolic function is normal. The Ejection Fraction is 55-60%. There is no gross valvular pathology. There is a no pericardial effusion.
[2024-11-27] MEDS: IOHEXOL 350 MG/ML 100ML IJ ONE (16:29)
[2024-11-27] MEDS ORDERED: HYDR12.55 PO (16:33)
[2024-11-27] MEDS ORDERED: ISOS10TA2 PO (16:33)
[2024-11-27] MEDS ORDERED: ENAL1TAB48 PO (16:33)
[2024-11-27] MEDS ORDERED: CLOP75TA70 PO (16:33)
[2024-11-27] MEDS ORDERED: PANT40T PO (16:33)
[2024-11-27] MEDS ORDERED: APIX5TAB PO (16:33)
[2024-11-27] MEDS ORDERED: AMLO1TAB22 PO (16:33)
[2024-11-27] MEDS ORDERED: AMIO200T33 PO (16:33)
[2024-11-27] MEDS ORDERED: ATOR40TA52 PO (16:33)
--- NOTE | 2024-11-27 17:08 | DVH ---
INDICATION: sob, on 4L O2 COMPARISON: No cTA's of the chest for comparison. TECHNIQUE: Multidetector CTA of the chest was performed of the chest with 100 cc of intravenous contr ast. PULMONARY ANGIOGRAPHY PROTOCOL was utilized using a bolus-tracking technique centered on the jed n pulmonary artery. Axial, coronal and sagittal multiplanar and MIP reformats were performed. Radiation Dose Information: CT Dose: CTDI volume is 24.9 mGy. Dose-length product is 1032.92 mGy*cm The dose indicators for CT are the volume Computed Tomography (CT) Dose Index (CTDIvol) and the Dose Length Product (DLP), and are measured in units of mGy and mGy-cm, respectively. These indicators are not patient dose, but values generated from the CT scanner acquisition factors. The report includes radiation exposure data for exposures received during this examination. Findings: Pulmonary artery: Normal caliber of the pulmonary artery. No large central or large segmental pulmo nary embolism. Lower neck: Normal thyroid. Lungs: No focal consolidation, pulmonary mass, or suspicious pulmonary nodule. Small bilateral pleura l effusions. Dual-chamber pacemaker in place with pulse generator over the left chest. Heart/Vascular Structures: Normal heart size. Normal caliber and enhancement of the aorta. Scattered coronary artery calcifications. Lymph Nodes: No adenopathy Pleura: No pleural effusion or significant pneumothorax. Musculoskeletal: No acute osseous abnormality. Upper abdomen: Patient is status post cholecystectomy. IMPRESSION: 1. No pulmonary embolism. 2. No findings of pulmonary artery hypertension. 3. Dual-chamber pacemaker in place with pulse generator over the left chest. 4. Small bilateral pleural effusions.
--- NOTE | 2024-11-27 20:49 | DVHPNRES ---
Progress Note Date Seen: Nov 27, 2024 Resident Creating Document: OMAR HERRON RESIDENT Medical Necessity Reason Pt with a Central, PICC or Fol: No Subjective Review of Systems Patient is a 74-year-old male with past medical history of hypertension, atrial fibrillation, dyslipidemia, COPD, s/p pacemaker, PCI in 2021, hepatitis-C, who came in due to chest pain. According to the patient, he has been having this chest pain for the last 1-2 weeks off and on. On patient completed an ablation procedure, later that evening he started experiencing discharge chest pain, 8/10 in intensity, sharp and aching pressure-like in quality and localized along the left chest with radiation to the middle of the chest and the left arm. Patient notes that nitroglycerin helped relieve her pain only partially. Patient has also been having shortness of breath, cough, hemoptysis (8 episodes), and epistaxis. Bruising is noted on bilateral forearms. Past surgical history: Appendectomy, cholecystectomy, back surgery Home medications: Eliquis 5 mg b.i.d., enalapril 20 mg b.i.d., atorvastatin 40 mg, amlodipine 5 mg b.i.d., hydrochlorothiazide 12.5 mg, omeprazole 20 mg, aspirin 81 mg Past Hospitalization: 1 week ago for ablation procedure Social & Personal history: Patient lives with his . Quit smoking 10 months ago, prior to that was smoking for 40 years, 20 years cigarettes in 20 years cigars: 3-4 cigars per day. Patient drinks alcohol 3-4 times per week, 3-4 beers with a shot of whiskey. Denies using drugs. Allergies: Denies Patient seen and examined at bedside. Patient is alert and oriented to time, place person and responding to all questions. Objective vital signs Vital Sign Date Time Temp Pulse Resp B/P (MAP) Pulse Ox O2 Delivery O2 Flow Rate FiO2 11/27/24 19:15 87 16 94 11/27/24 19:06 Nasal Cannula 3.0 11/27/24 19:06 32 11/27/24 16:40 98.0 132/59 (83) 98.0 Total Intake and Output 11/26/24 11/26/24 11/27/24 15:00 23:00 07:00 Intake Total 0 ml 860 ml Balance 0 ml 860 ml medications Current Medications Medications Dose Ordered Sig/Gordy Route Start Time Stop Time Status Last Admin Dose Admin Nitroglycerin 0.4 mg Q5MINP PRN SL 11/26/24 01:30 Morphine Sulfate 2 mg Q30M PRN IV 11/26/24 01:30 Methylprednisolone Sodium Succinate 40 mg BID IV 11/27/24 10:00 11/27/24 09:21 40 MG Albuterol 2.5 mg Q6HR NEB 11/26/24 06:00 11/27/24 19:04 2.5 MG Ipratropium [place] 0.5 mg Q6HR NEB 11/26/24 06:00 11/27/24 19:04 0.5 MG Furosemide 20 mg DAILY IV 11/26/24 10:00 11/27/24 09:23 20 MG Aspirin 81 mg DAILY PO 11/26/24 10:00 11/27/24 09:21 81 MG Atorvastatin Calcium 40 mg HS PO 11/26/24 22:00 11/26/24 21:54 40 MG Pantoprazole Sodium 40 mg DAILY@0630 IV 11/27/24 06:30 11/27/24 06:08 40 MG Acetaminophen/ Hydrocodone Bitart 1 tab Q6HPRN PRN PO 11/26/24 21:30 11/27/24 07:49 1 TAB Ceftriaxone Sodium 50 ml @ 100 mls/hr DAILY@09 IV 11/28/24 09:00 Azithromycin 250 ml @ 125 mls/hr DAILY IV 11/28/24 10:00 Examination General Appearance: Cooperative. Well developed. Well nourished. NAD Head Exam: Normal inspection Neck Exam: Normal inspection. Non-tender. Normal alignment Pulmonary/Respiratory: Chest non-tender. Clear bilateral breath sounds, trace crackles, no wheezing. Cardiovascular/Chest: Regular rate and rhythm. No murmurs. No JVD. Peripheral Pulses: 2+ Radial (R). 2+ Radial (L). 2+ Pedal (R). 2+ Pedal (L) Abdominal Exam: Normal bowel sounds. Soft. normal abdomen, no visible veins, m id abdominal tenderness to palpation No hepatospenomegaly. No masses Ankle Exam: Negative ankle edema Lower extremities: 1+ lower extremity edema Neuro/Mental Status: A&O x4. Coherent. Thoughts/Psych: Normal thought pattern. Appropriate mood and affect. Good judgement and insight Skin Exam: Normal inspection. Normal color. Warm. Dry. Bruising on bilateral forearms laboratory and microbiology Laboratory Tests 11/27/24 05:46 Test 11/27/24 05:46 Range/Units Serum Glucose 145 H 74-106 mg/dL Microbiology Date/Time Source Procedure Growth Status 11/26/24 01:43 Nose MRSA Screen - Final Complete 11/26/24 01:37 Blood Blood Culture - Preliminary NO GROWTH AFTER 24 HOURS OF INCUBATION. Resulted Problem List/Assessment/Plan Problem List/Assessment/Plan Acute respiratory failure likely due to COPD exacerbation versus pneumonia Possible community-acquired pneumonia, Gram-positive versus Gram-negative COPD, possible exacerbation NSTEMI type 2 due to above - CXR: Hyperexpansion of the lungs which can be seen in the setting of COPD/ emphysema. Interstitial prominence in the lungs which could be due to fibrosis / scarring, atypical infection, or edema. - ipratropium albuterol med nebs - IV ceftriaxone, IV azithromycin - IV methylprednisolone 40 mg b.i.d. - ordered CT angiography chest: Chest pain Hypercoagulable state secondary to Atrial fibrillation, s/p ablation S/p pacemaker - aspirin 81 mg - atorvastatin 40 mg - IV furosemide 20 mg Prediabetes, Hb A1c 6 - monitor PUD prophylaxis: protonix 40mg DVT prophylaxis: Levonox 40mg Goals of care: Full code, discussed for >16 minutes on 11/26/24 Plan discussed with patient Plan discussed with Dr. Zhu Plan discussed with: Patient, Other (RN) My Orders My Orders Orders - OMAR HERRON Procedure Category Date Status Time Ct Angio Chest CT 11/27/24 Resulted Contrast 14:34 Communication Order ORDERS 11/27/24 Transmitted 16:27 Ceftriaxone 1gm/50ml PHA 11/28/24 In Process D5w (Rocephin) 09:00 Azithromycin 500mg/ PHA 11/28/24 In Process 250ml (Zithromax 50 10:00 Date of Service: Nov 27, 2024 Billing Provider: ZHAO ZHU MD Common Visit Codes: [id number] INP/OBS CARE(HIGH) OMAR HERRON Nov 27, 2024 20:49 ZHAO ZHU MD Nov 30, 2024 08:28
[2024-11-28] VITALS (20 sets, daily range): BP systolic 104–145; BP diastolic 51–65; PULSE 72–98; RESP 14–20; TEMP 97.7–98.8; O2SAT 93–98
--- NOTE | 2024-11-28 01:28 | DVHINCON2 ---
DATE OF CONSULTATION: 11/27/2024 REFERRING PHYSICIAN: ____. CONSULTING PHYSICIAN: Dr. Ramirez, covering for Dr. Hauser. INDICATION: Shortness of breath and chest pain. HISTORY OF PRESENT ILLNESS: The patient is a 74-year-old male with history of coronary artery disease status post angioplasty in the past, stent to RCA; history of atrial fibrillation, status post ablation few days ago at [facility] by Dr. Asher, history of sick sinus syndrome, status post permanent pacemaker implantation, now presented to the hospital with complaints of chest pain, described the pain as sharp. The patient stated the pain was worse when he takes deep breath. The patient was also complaining of shortness of breath and cough. The cough was productive of blood-tinged sputum. Currently, being treated for underlying pneumonia. His troponin has been mildly elevated with no significant trend up. PAST MEDICAL HISTORY: * CAD, status post angioplasty, stent to the RCA. * Atrial fibrillation, status post ablation few days ago at [facility]. * Hypertension. * Status post permanent pacemaker implantation. MEDICATIONS: Per med rec. ALLERGIES: No known drug allergies. PHYSICAL EXAMINATION: GENERAL: Alert and awake, in no form of cardiopulmonary distress. VITAL SIGNS: Blood pressure 125/62, pulse 72 per minute, saturation 95%. HEENT: No carotid bruits. No jugular venous distention. CHEST: Bilateral air entry, few rhonchi. CARDIOVASCULAR: Precordial and carotid pulses palpable. Normal S1, S2. EXTREMITIES: No peripheral edema. DIAGNOSTIC DATA: Sodium 133, potassium 3.3, creatinine 0.8. Troponin first set ____ third set is 270. White count elevated at 12.0, hemoglobin 11.4 and platelet is 164. ASSESSMENT: * Chest pain, possibly pleuritic in nature, doubt acute coronary syndrome. * Pneumonia. * History of atrial fibrillation, status post ablation few days ago at [facility]. * History of coronary artery disease, status post angioplasty. * Hypokalemia. * Pneumonia. RECOMMENDATIONS: * Continue IV antibiotics. * Continue aspirin. * Continue statin therapy. * Hold Eliquis for now given hemoptysis. * Supplement potassium. * We will review echo once completed. * Continue telemetry monitoring. Thank you for allowing me to participate in the care of this patient. MD JADON Clement/COREY/SHAYAN TID: [id number] RECEIPT: [id number]
[2024-11-28 06:53] LABS: Chloride 98 mmol/L (98-107)
[2024-11-28 06:54] LABS: Anion Gap 9 (5-15); Calcium 9.6 mg/dL (8.7-10.4); Carbon Dioxide 26 mmol/L (20-31)
[2024-11-28 06:59] LABS: BUN/Creatinine Ratio 30.8 (10.0-20.0)
[2024-11-28 07:35] LABS: Basophils # (auto) 0 10 ^3/uL (0-0.2); Eosinophils # (auto) 0 10 ^3/uL (0-0.8); Hematocrit 35.5 % (41.0-53.0); Hemoglobin 12.2 g/dL (13.5-17.5); Lymphocytes # (auto) 0.9 10 ^3/uL (0.4-5.4); Mean Corpuscular Hemoglobin 33.4 pg (28.0-32.0); Mean Corpuscular Hgb Conc. 34.5 g/dL (32.0-36.0); Mean Corpuscular Volume 96.8 fL (80.0-100.0); Monocytes # (auto) 0.8 10 ^3/uL (0-1.3); Monocytes % (auto) 7.1 % (0.0-12.0); Neutrophils # (auto) 9.3 10 ^3/uL (1.6-8.6); Neutrophils % (auto) 84.9 % (37.0-80.0); Platelet Count (auto) 190 10^3/uL (140-450); Red Blood Cells 3.67 10^6/uL (4.5-5.90); Red Cell Distribution Width 14.1 % (11.8-14.3)
[2024-11-28] MEDS: MORPHINE SULFATE INJ 2 MG/ml SYRG IV PRN (08:33)
[2024-11-28] MEDS: POTASSIUM EFFERVESENT TAB 25 MEQ PO ONE (08:45)
[2024-11-28 09:02] LABS: Blood Urea Nitrogen 24 mg/dL (9-23); Glucose 137 mg/dL (74-106); Sodium 133 mmol/L (136-145)
[2024-11-28] MEDS: cefTRIAXone 1GM/50ML D5W 50 ML IV SCH (09:38)
[2024-11-28] MEDS: AZITHROMYCIN 500MG/ 250ML 250 ML IV SCH (10:00)
--- NOTE | 2024-11-28 12:43 | DVHPNRES ---
Progress Note Date Seen: Nov 28, 2024 Resident Creating Document: OMAR HERRON RESIDENT Medical Necessity Reason Pt with a Central, PICC or Fol: No Subjective Review of Systems Patient is a 74-year-old male with past medical history of hypertension, atrial fibrillation, dyslipidemia, COPD, s/p pacemaker, PCI in 2021, hepatitis-C, who came in due to chest pain. According to the patient, he has been having this chest pain for the last 1-2 weeks off and on. On patient completed an ablation procedure, later that evening he started experiencing discharge chest pain, 8/10 in intensity, sharp and aching pressure-like in quality and localized along the left chest with radiation to the middle of the chest and the left arm. Patient notes that nitroglycerin helped relieve her pain only partially. Patient has also been having shortness of breath, cough, hemoptysis (8 episodes), and epistaxis. Bruising is noted on bilateral forearms. Past surgical history: Appendectomy, cholecystectomy, back surgery Home medications: Eliquis 5 mg b.i.d., enalapril 20 mg b.i.d., atorvastatin 40 mg, amlodipine 5 mg b.i.d., hydrochlorothiazide 12.5 mg, omeprazole 20 mg, aspirin 81 mg Past Hospitalization: 1 week ago for ablation procedure Social & Personal history: Patient lives with his . Quit smoking 10 months ago, prior to that was smoking for 40 years, 20 years cigarettes in 20 years cigars: 3-4 cigars per day. Patient drinks alcohol 3-4 times per week, 3-4 beers with a shot of whiskey. Denies using drugs. Allergies: Denies Patient seen and examined at bedside. Patient is alert and oriented to time, place person and responding to all questions. Patient continues to experience episodes of chest pain, specifically after receiving breathing treatment the last for 10-15 minutes and then subsides. Patient notes the pain as 7-8/10. Objective vital signs Vital Sign Date Time Temp Pulse Resp B/P (MAP) Pulse Ox O2 Delivery O2 Flow Rate FiO2 11/28/24 12:32 73 16 96 11/28/24 12:26 Nasal Cannula 2.0 11/28/24 12:26 28 11/28/24 09:38 116/74 11/28/24 09:00 97.7 97.7 Total Intake and Output 12/27/24 12/27/24 12/28/24 15:00 23:00 07:00 Intake Total 900 ml 200 ml Output Total 950 ml Balance -50 ml 200 ml medications Current Medications Medications Dose Ordered Sig/Gordy Route Start Time Stop Time Status Last Admin Dose Admin Nitroglycerin 0.4 mg Q5MINP PRN SL 11/26/24 01:30 Morphine Sulfate 2 mg Q30M PRN IV 11/26/24 01:30 11/28/24 08:33 2 MG Methylprednisolone Sodium Succinate 40 mg BID IV 11/27/24 10:00 11/28/24 09:38 40 MG Albuterol 2.5 mg Q6HR NEB 11/26/24 06:00 11/28/24 12:26 2.5 MG Ipratropium [place] 0.5 mg Q6HR NEB 11/26/24 06:00 11/28/24 12:26 0.5 MG Furosemide 20 mg DAILY IV 11/26/24 10:00 11/28/24 09:38 20 MG Aspirin 81 mg DAILY PO 11/26/24 10:00 11/28/24 09:38 81 MG Atorvastatin Calcium 40 mg HS PO 11/26/24 22:00 11/27/24 21:39 40 MG Pantoprazole Sodium 40 mg DAILY@0630 IV 11/27/24 06:30 11/28/24 05:53 40 MG Acetaminophen/ Hydrocodone Bitart 1 tab Q6HPRN PRN PO 11/26/24 21:30 11/28/24 05:53 1 TAB Ceftriaxone Sodium 50 ml @ 100 mls/hr DAILY@09 IV 11/28/24 09:00 11/28/24 09:38 100 MLS/HR Azithromycin 250 ml @ 125 mls/hr DAILY IV 11/28/24 10:00 11/28/24 10:00 125 MLS/HR Examination General Appearance: Cooperative. Well developed. Well nourished. NAD Head Exam: Normal inspection Neck Exam: Normal inspection. Non-tender. Normal alignment Pulmonary/Respiratory: Chest non-tender. Clear bilateral breath sounds, no crackles, no wheezing. Cardiovascular/Chest: Regular rate and rhythm. No murmurs. No JVD. Peripheral Pulses: 2+ Radial (R). 2+ Radial (L). 2+ Pedal (R). 2+ Pedal (L) Abdominal Exam: Normal bowel sounds. Soft. normal abdomen, no visible veins, m id abdominal tenderness to palpation No hepatospenomegaly. No masses Ankle Exam: Negative ankle edema Lower extremities: 1+ lower extremity edema Neuro/Mental Status: A&O x4. Coherent. Thoughts/Psych: Normal thought pattern. Appropriate mood and affect. Good judgement and insight Skin Exam: Normal inspection. Normal color. Warm. Dry. Bruising on bilateral forearms laboratory and microbiology Laboratory Tests 11/28/24 06:13 Test 11/28/24 06:13 Range/Units Serum Glucose 137 H 74-106 mg/dL Microbiology Date/Time Source Procedure Growth Status 11/26/24 01:43 Nose MRSA Screen - Final Complete 11/26/24 01:37 Blood Blood Culture - Preliminary NO GROWTH AFTER 48 HOURS OF INCUBATION. Resulted Problem List/Assessment/Plan Problem List/Assessment/Plan Acute respiratory failure likely due to COPD exacerbation versus pneumonia Possible community-acquired pneumonia, Gram-positive versus Gram-negative COPD, possible exacerbation NSTEMI type 2 due to above Pleural effusion, bilateral - CXR: Hyperexpansion of the lungs which can be seen in the setting of COPD/ emphysema. Interstitial prominence in the lungs which could be due to fibrosis / scarring, atypical infection, or edema. - ipratropium albuterol med nebs - IV ceftriaxone, IV azithromycin - IV methylprednisolone 40 mg b.i.d. - ordered CT angiography chest: No pulmonary embolism. No findings of pulmonary artery hypertension. Dual-chamber pacemaker in place with pulse generator over the left chest. Small bilateral pleural effusions. Chest pain Hypercoagulable state secondary to Atrial fibrillation, s/p ablation S/p pacemaker - aspirin 81 mg - atorvastatin 40 mg - IV furosemide 20 mg Prediabetes, Hb A1c 6 - monitor PUD prophylaxis: protonix 40mg DVT prophylaxis: Levonox 40mg Goals of care: Full code, discussed for >16 minutes on 11/26/24 Plan discussed with patient Plan discussed with Dr. Newton critical care time 45 mins Plan discussed with: Patient, Other (RN) My Orders My Orders Orders - OMAR HERRON RESIDENT Procedure Category Date Status Time Ct Angio Chest CT 11/27/24 Resulted Contrast 14:34 Communication Order ORDERS 11/27/24 Transmitted 16:27 Ceftriaxone 1gm/50ml PHA 11/28/24 In Process D5w (Rocephin) 09:00 Azithromycin 500mg/ PHA 11/28/24 In Process 250ml (Zithromax 50 10:00 Date of Service: Nov 28, 2024 Billing Provider: MARGARITA NEWTON MD Common Visit Codes: [id number] CARE 30-74 MIN OMRA HERRON Nov 28, 2024 12:43 MARGARITA NEWTON MD Nov 29, 2024 10:39
[2024-11-28] MEDS: MELATONIN 5 MG TAB PO SCH (21:39)
[2024-11-29] VITALS (12 sets, daily range): BP systolic 133–148; BP diastolic 58–75; PULSE 67–83; RESP 16–20; TEMP 97.5–98.2; O2SAT 92–98
[2024-11-29 11:31] LABS: Basophils # (auto) 0 10 ^3/uL (0-0.2); Eosinophils # (auto) 0 10 ^3/uL (0-0.8); Hematocrit 36.6 % (41.0-53.0); Hemoglobin 12.3 g/dL (13.5-17.5); Lymphocytes # (auto) 1.2 10 ^3/uL (0.4-5.4); Lymphocytes % (auto) 9.7 % (10.0-50.0); Mean Corpuscular Hemoglobin 32.8 pg (28.0-32.0); Mean Corpuscular Hgb Conc. 33.7 g/dL (32.0-36.0); Mean Corpuscular Volume 97.4 fL (80.0-100.0); Monocytes # (auto) 1.5 10 ^3/uL (0-1.3); Monocytes % (auto) 12.1 % (0.0-12.0); Neutrophils # (auto) 9.7 10 ^3/uL (1.6-8.6); Neutrophils % (auto) 78.2 % (37.0-80.0); Platelet Count (auto) 219 10^3/uL (140-450); Red Blood Cells 3.76 10^6/uL (4.5-5.90); Red Cell Distribution Width 14.1 % (11.8-14.3); White Blood Cell 12.4 10^3/uL (4.4-10.8)
[2024-11-29 11:37] LABS: Chloride 99 mmol/L (98-107); Potassium 3.9 mmol/L (3.5-5.1)
[2024-11-29 11:38] LABS: Anion Gap 9 (5-15); Calcium 9.9 mg/dL (8.7-10.4); Carbon Dioxide 25 mmol/L (20-31); Sodium 133 mmol/L (136-145)
[2024-11-29 11:43] LABS: BUN/Creatinine Ratio 23.5 (10.0-20.0); Blood Urea Nitrogen 19 mg/dL (9-23)
--- NOTE | 2024-11-29 11:43 | DVHPNRES ---
Progress Note Date Seen: Nov 29, 2024 Resident Creating Document: CLAUDY ALNG RESIDENT Medical Necessity Reason Pt with a Central, PICC or Fol: No Subjective Review of Systems pt seen and examined at bedside, mentioning no new complaints, mentions occasional left sided chest pain, which is sharp in quality. currently on 2L O2, will wean off if patient doesnt desaturate. Objective vital signs Vital Sign Date Time Temp Pulse Resp B/P (MAP) Pulse Ox O2 Delivery O2 Flow Rate FiO2 11/29/24 10:15 94 Room Air* 0 11/29/24 10:06 97.5 78 18 133/58 (83) 97.5 Total Intake and Output 11/28/24 11/28/24 11/29/24 15:00 23:00 07:00 Intake Total 1250 ml 250 ml 400 ml Output Total 350 ml Balance 1250 ml 250 ml 50 ml medications Current Medications Medications Dose Ordered Sig/Gordy Route Start Time Stop Time Status Last Admin Dose Admin Nitroglycerin 0.4 mg Q5MINP PRN SL 11/26/24 01:30 Morphine Sulfate 2 mg Q30M PRN IV 11/26/24 01:30 11/28/24 08:33 2 MG Methylprednisolone Sodium Succinate 40 mg BID IV 11/27/24 10:00 11/29/24 09:47 40 MG Albuterol 2.5 mg Q6HR NEB 11/26/24 06:00 11/29/24 07:24 2.5 MG Ipratropium [place] 0.5 mg Q6HR NEB 11/26/24 06:00 11/29/24 07:24 0.5 MG Furosemide 20 mg DAILY IV 11/26/24 10:00 11/29/24 09:54 20 MG Aspirin 81 mg DAILY PO 11/26/24 10:00 11/29/24 09:48 81 MG Atorvastatin Calcium 40 mg HS PO 11/26/24 22:00 11/28/24 21:39 40 MG Pantoprazole Sodium 40 mg DAILY@0630 IV 11/27/24 06:30 11/29/24 05:43 40 MG Acetaminophen/ Hydrocodone Bitart 1 tab Q6HPRN PRN PO 11/26/24 21:30 11/28/24 05:53 1 TAB Ceftriaxone Sodium 50 ml @ 100 mls/hr DAILY@09 IV 11/28/24 09:00 11/29/24 09:47 100 MLS/HR Azithromycin 250 ml @ 125 mls/hr DAILY IV 11/28/24 10:00 11/28/24 10:00 125 MLS/HR Melatonin 5 mg HS PO 11/28/24 22:00 11/28/24 21:39 5 MG laboratory and microbiology Laboratory Tests 11/29/24 10:40 Test 11/29/24 10:40 Range/Units Serum Glucose Pending Microbiology Date/Time Source Procedure Growth Status 11/26/24 01:43 Nose MRSA Screen - Final Complete 11/26/24 01:37 Blood Blood Culture - Preliminary NO GROWTH AFTER 72 HOURS OF INCUBATION. Resulted CLAUDY LANG RESIDENT Nov 29, 2024 11:43
[2024-11-29 11:47] LABS: Glucose 126 mg/dL (74-106)
[2024-11-29] MEDS ORDERED: FUROSEMIDE 40 MG/4 ML VIAL IV ONE (13:00)
[2024-11-29] MEDS ORDERED: AUG875T PO (15:51)
--- NOTE | 2024-11-29 15:52 | DVHDSRES ---
Discharge Summary Date of Admission Resident Creating Document: CLAUDY LANG Nov 26, 2024 at 01:17 Date of Discharge: Nov 29, 2024 Labs/Diagnostic Data: Laboratory Results Test 11/29/24 10:40 11/27/24 23:27 11/26/24 02:45 11/26/24 01:49 White Blood Count 12.4 10^3/uL (4.4-10.8) Red Blood Count 3.76 10^6/uL (4.5-5.90) Hemoglobin 12.3 g/dL (13.5-17.5) Hematocrit 36.6 % (41.0-53.0) Mean Corpuscular Volume 97.4 fL (80.0-100.0) Mean Corpuscular Hemoglobin 32.8 pg (28.0-32.0) Mean Corpuscular Hemoglobin Concent 33.7 g/dL (32.0-36.0) Red Cell Distribution Width 14.1 % (11.8-14.3) Platelet Count 219 10^3/uL (140-450) Mean Platelet Volume 7.8 fL (6.9-10.8) Neutrophils (%) (Auto) 78.2 % (37.0-80.0) Lymphocytes (%) (Auto) 9.7 % (10.0-50.0) Monocytes (%) (Auto) 12.1 % (0.0-12.0) Eosinophils (%) (Auto) 0.0 % (0.0-7.0) Basophils (%) (Auto) 0.0 % (0.0-2.0) Neutrophils # (Auto) 9.7 10 ^3/uL (1.6-8.6) Lymphocytes # (Auto) 1.2 10 ^3/uL (0.4-5.4) Monocytes # (Auto) 1.5 10 ^3/uL (0-1.3) Eosinophils # (Auto) 0 10 ^3/uL (0-0.8) Basophils # (Auto) 0 10 ^3/uL (0-0.2) Nucleated Red Blood Cells 0.0 % Sodium Level 133 mmol/L (136-145) Potassium Level 3.9 mmol/L (3.5-5.1) Chloride Level 99 mmol/L (98-107) Carbon Dioxide Level 25 mmol/L (20-31) Anion Gap 9 (5-15) Blood Urea Nitrogen 19 mg/dL (9-23) Creatinine 0.81 mg/dL (0.700-1.30) Glomerular Filtration Rate Calc 93 mL/min (>90) BUN/Creatinine Ratio 23.5 (10.0-20.0) Serum Glucose 126 mg/dL (74-106) Calcium Level 9.9 mg/dL (8.7-10.4) Vancomycin Level Trough 12.7 ug/mL (5-10) Hemoglobin A1c 6.0 % A1C (<5.7) Influenza Type A Antigen Negative (Negative) Influenza Type B Antigen Negative (Negative) SARS-CoV-2 Antigen (Rapid) Negative (NEGATIVE) Test 11/26/24 01:43 11/26/24 01:37 11/25/24 22:47 Urine Color Yellow (Yellow) Urine Clarity Clear (Clear) Urine pH 7.5 (5.0-9.0) Urine Specific Joiner 1.021 (1.001-1.035) Urine Protein Trace (Negative) Urine Ketones Negative (Negative) Urine Blood Negative /uL (Negative) Urine Nitrite Negative (Negative) Urine Bilirubin Negative (Negative) Urine Urobilinogen 8 mg/dL (Negative) Urine Leukocyte Esterase Negative /uL (Negative) Urine RBC 2 /hpf (0 - 3) Urine WBC 1 /hpf (0 - 3) Urine Squamous Epithelial Cells Few /hpf (<5) Urine Bacteria None seen /hpf (None Seen) Urine Glucose Normal mg/dL (Normal) Urine Opiates Screen Neg (NEGATIVE) Urine Fentanyl Screen Pos (NEGATIVE) Urine Barbiturates Screen Neg (NEGATIVE) Urine Phencyclidine Screen Neg (NEGATIVE) Urine Amphetamines Screen Neg (NEGATIVE) Urine Benzodiazepines Screen Neg (NEGATIVE) Urine Cocaine Screen Neg (NEGATIVE) Urine Cannabinoids Screen Neg (NEGATIVE) Prothrombin Time 13.0 sec (9.3-11.8) Prothrombin Time INR 1.25 (0.9-1.15) Activated Partial Thromboplast Time 34.8 SEC (24.5-34.5) Troponin I High Sensitivity 270 ng/L (</=54) B-Type Natriuretic Peptide 249.65 pg/mL (0-100) Thyroid Stimulating Hormone (TSH) 0.74 uIU/mL (0.55-4.78) Plasma/Serum Blood Alcohol < 3.0 mg/dL (<10) Lactic Acid Level 0.9 mmol/L (0.4-2.0) Other Laboratory Tests 11/29/24 10:40 Brief Hx & Hospital Course: 74-year-old male with past medical history of hypertension, atrial fibrillation, dyslipidemia, COPD, s/p pacemaker, PCI in 2021, hepatitis-C, who came in due to chest pain. According to the patient, he has been having this chest pain for the last 1-2 weeks off and on. patient recently had an ablation procedure, later that evening he started experiencing discharge chest pain, 8/10 in intensity, sharp and aching pressure-like in quality and localized along the left chest with radiation to the middle of the chest and the left arm. EKG and troponin was ordered, did not show any evidence of acute coronary syndrome. Chest x-ray showed Hyperexpansion of the lungs which can be seen in the setting of COPD/ emphysema. Interstitial prominence in the lungs which could be due to fibrosis / scarring, atypical infection, or edema. Patient was started on nebulization with ipratropium albuterol, IV ceftriaxone and IV azithromycin for possible pneumonia and IV methylprednisolone for possible COPD exacerbation. CT angiography was ordered which revealed No pulmonary embolism. No findings of pulmonary artery hypertension. Dual-chamber pacemaker in place with pulse generator over the left chest. Small bilateral pleural effusions. Patient was started on IV Lasix for small bilateral pleural effusion. Wire Harness Design Engineer was consulted, echocardiogram revealed ejection fraction of 55-60%. He was initially on 2 L of oxygen through nasal cannula which went up to 4 L during the hospital admission, but later improved to room aim. Patient had significant improvement in his symptoms. At the time of discharge, patient had stable vitals, no new complaints. Discharge plan was discussed with the patient and patient was advised to follow up with PCP within one week and rn production within 1-2 weeks. Patient was prescribed on Augmentin for 3 days. Condition at Discharge: Stable Final Diagnosis/Problems List Acute hypoxic respiratory failure likely due to COPD exacerbation/pneumonia Chest pain likely pleuritic pain due to possible community-acquired pneumonia, ruled out ACS ?Community-acquired pneumonia, Gram-positive/Gram-negative NSTEMI type 2 Atrial fibrillation status post recent ablation Hypertension Dyslipidemia Coronary artery disease status post PCI 2021 Hepatitis-C Discharge Disposition: Home Discharge Instruct/Medications Follow Up/Referral: Follow up with PCP/DC clinic within one week and rn production within two weeks Medications: Augmentin Discharge Statement: "Patient was advised to return to the ER or call 911 if any headaches, dizziness, shortness of breath, chest pain, abdominal pain, bleeding, fevers, or worsening of medical condition. Patient was counseled about treatment plan, medications, possible side effects, patientverbalized understanding. All questions were answered to the best of my ability. This discharge took greater then 30 minutes in planning, reviewing documentation, counseling the patient, and discussing with other team members." ASSESSMENT ASSESSMENT Assessment Date of Service: Nov 29, 2024 Billing Provider: MARGARITA DIEGO MD Common Visit Codes: [id number] DISCH DAY >30min CLAUDY LANG RESIDENT Nov 29, 2024 15:52 MARGARITA DIEGO MD Dec 01, 2024 11:19
[2024-11-29] MEDS: FUROSEMIDE 20 MG/2 ML VIAL IV ONE (16:22)
--- NOTE | 2024-12-01 12:31 | ECG ---
[facility] Test Date: 2024-11-25 Test Time: 22:42:49 Pat Name: SATYA RIVERA Department: ER Room: [facility]5T A Gender: M Geological Technician: : 1950 Requested By: IOANA CURIEL Order Number: [id number] Reading MD: Ramin Page Measurements Intervals [place] Rate: 76 P: 88 SD: 160 QRS: 180 QRSD: 163 T: 51 QT: 416 QTc: 468 Interpretive Statements A-V dual-paced rhythm with some inhibition No further analysis attempted due to paced rhythm Electronically Signed On 12-01-2024 17:53:54 PST by Ramin Page Please click the below link to view image of tracing.
== END 2024-11-29 19:07 | disposition home or self-care (01) | DRG 177 ==
LOC: ER 22:39 → TELE 11-26 01:17 → TELE-WESTW 11-26 16:46
PROVIDERS: ADMIT Student in an Organized Health Care Education/Training Program; ATTEND Student in an Organized Health Care Education/Training Program
DX: J15.69 Pneumonia due to other Gram-negative bacteria (principal); I21.A1 Myocardial infarction type 2; J96.00 Acute respiratory failure, unspecified whether with hypoxia or hypercapnia; J44.1 Chronic obstructive pulmonary disease with (acute) exacerbation; I48.20 Chronic atrial fibrillation, unspecified; D68.69 Other thrombophilia; K21.9 Gastro-esophageal reflux disease without esophagitis; I10 Essential (primary) hypertension; I48.91 Unspecified atrial fibrillation; J15.9 Unspecified bacterial pneumonia; I25.10 Atherosclerotic heart disease of native coronary artery without angina pectoris; E87.6 Hypokalemia; Z90.49 Acquired absence of other specified parts of digestive tract; Z95.5 Presence of coronary angioplasty implant and graft; Z95.0 Presence of cardiac pacemaker
CPT/HCPCS: 36415; 71046; 71275; 80048; 80202; 80307; 80320; 81001; 83036; 83605; 83880; 84443; 84484; 85025; 85610; 85730; 87040; 87081; 87426; 87804; 93005; 93306; 94640; 96365; 96375; 97163; G0378; J0692; J2470

== ENCOUNTER → 2025-02-12 | Outpatient (CLI) | payer MEDICARE ==
[~2025-02-12] MED LIST changes: +AMIO200T33 PO; +AMLO1TAB22 PO; +APIX5TAB PO; +ATOR40TA52 PO; +AUG875T PO; -CEPH500C PO; +CLOP75TA70 PO; +ENAL1TAB48 PO; +HYDR12.55 PO; +ISOS10TA2 PO; +PANT40T PO
[2025-02-12 13:50] LABS: Basophils # (auto) 0.1 10 ^3/uL (0-0.2); Basophils % (auto) 0.8 % (0.0-2.0); Eosinophils # (auto) 0 10 ^3/uL (0-0.8); Eosinophils % (auto) 0.6 % (0.0-7.0); Hematocrit 40.7 % (41.0-53.0); Lymphocytes # (auto) 2.2 10 ^3/uL (0.4-5.4); Lymphocytes % (auto) 29.3 % (10.0-50.0); Mean Corpuscular Hemoglobin 33.4 pg (28.0-32.0); Mean Corpuscular Hgb Conc. 34.4 g/dL (32.0-36.0); Mean Corpuscular Volume 97.1 fL (80.0-100.0); Monocytes # (auto) 0.9 10 ^3/uL (0-1.3); Monocytes % (auto) 12.3 % (0.0-12.0); Neutrophils # (auto) 4.3 10 ^3/uL (1.6-8.6); Platelet Count (auto) 235 10^3/uL (140-450); Red Blood Cells 4.19 10^6/uL (4.5-5.90); Red Cell Distribution Width 15.1 % (11.8-14.3); White Blood Cell 7.5 10^3/uL (4.4-10.8)
[2025-02-12 14:17] LABS: LDL Cholesterol 49 mg/dL (< 100); Triglycerides 58 mg/dL (< 150)
[2025-02-12 14:19] LABS: Cholesterol 106 mg/dL (< 200); HDL Cholesterol 43 mg/dL (40-59)
== END | disposition home or self-care (01) ==
LOC: LAB 13:28
PROVIDERS: ATTEND Internal Medicine
DX: I25.10 Atherosclerotic heart disease of native coronary artery without angina pectoris (principal); J44.9 Chronic obstructive pulmonary disease, unspecified; M47.9 Spondylosis, unspecified; R07.9 Chest pain, unspecified; Z79.899 Other long term (current) drug therapy
CPT/HCPCS: 36415; 80061; 82306; 83036; 85025

== ENCOUNTER → 2025-03-04 | Outpatient (CLI) | payer MEDICARE ==
[2025-03-04 11:36] LABS: Alanine Aminotransferase 25 U/L (7-40); Anion Gap 8 (5-15); Aspartate Aminotransferase 23 U/L (13-40); BUN/Creatinine Ratio 16.7 (10.0-20.0); Bilirubin, Total 0.7 mg/dL (0.2-1.0); Blood Urea Nitrogen 16 mg/dL (9-23); Calcium 10.2 mg/dL (8.7-10.4); Carbon Dioxide 26 mmol/L (20-31); Chloride 101 mmol/L (98-107); Potassium 4.6 mmol/L (3.5-5.1); Total Protein 7.4 g/dL (5.7-8.2)
[2025-03-04 11:43] LABS: Albumin 4.9 g/dL (3.2-4.8); Alkaline Phosphatase 118 U/L (46-116); Glucose 114 mg/dL (74-106); Sodium 135 mmol/L (136-145)
== END | disposition home or self-care (01) ==
LOC: LAB 10:53
PROVIDERS: ATTEND Internal Medicine
DX: M79.81 Nontraumatic hematoma of soft tissue (principal)
CPT/HCPCS: 36415; 80053

== ENCOUNTER 2025-06-28 12:02 | Outpatient (CLI) | payer MEDICARE | END 2025-06-28 17:00 | disposition home or self-care (01) | LOC: LAB 12:02 | PROVIDERS: ATTEND Internal Medicine | DX: I10 Essential (primary) hypertension (principal); I48.0 Paroxysmal atrial fibrillation; Z79.899 Other long term (current) drug therapy | CPT/HCPCS: 36415; 82306; 82607; 83036 ==

== ENCOUNTER 2025-07-14 14:29 | Outpatient (CLI) | payer MEDICARE ==
[2025-07-14 14:43] LABS: Hematocrit 37.6 % (41.0-53.0); Hemoglobin 13.0 g/dL (13.5-17.5); Mean Corpuscular Hemoglobin 32.1 pg (28.0-32.0); Mean Corpuscular Volume 93.0 fL (80.0-100.0); Nucleated Red Blood Cells % 0.0 %
== END 2025-07-14 17:00 | disposition home or self-care (01) ==
LOC: LAB 14:29
PROVIDERS: ATTEND Internal Medicine
DX: I48.0 Paroxysmal atrial fibrillation (principal); I25.10 Atherosclerotic heart disease of native coronary artery without angina pectoris; I50.9 Heart failure, unspecified
CPT/HCPCS: 36415; 83880; 85025; 85379

== ENCOUNTER 2025-08-02 20:10 | Inpatient (IN) | payer MEDICARE ==
[~2025-08-02] VITALS: Ht 188 cm; Wt 106.2 kg
--- NOTE | 2025-08-02 20:30 | ED.PDOC ---
History of Present Illness HPI Comments 74 y/o M, with a significant cardiac history, is BIBA for c/c shortness of breath, chest pain, nausea, and vomiting. Per EMS report, patient called fo sudden, unprovoked, and atraumatic onset of symptoms, this evening. Patient was noted to have been found on scene, tripoding, with clear but diminished lung s ounds in bilateral lower lobes. Pain is localized to the right side of his chest, described as sharp in quality, and is nonradiating. En route, patient received NTG, ASA, oxygen, and IV fluids, with relief to chest pain prior to arrival. Patient endorses no recent prior ailments, injuries, sick contacts, travel, strenuous activities, stressors, or further pertinent history or events. Patient has a significant history of AFib s/p cardiac ablation, CAD s/p PCI in 2021, COPD, GERD, HLD, HTN, NSTEMI type II, and pacemaker. He denies any fever, chills, bloody or bilious vomitus, abdominal pain, diarrhea, or further associated symptoms. Time Seen by MD: 20:15 Primary Care Provider: YUDY Reviewed Notes: Nurses Notes, Surface Logging Systems Logger Notes, Medications, Allergies Allergies: Coded Allergies: NO KNOWN ALLERGIES (Unverified , 06/13/22) Home Meds Active Scripts Amoxicillin & Pot Clavulanate (AUGMENTIN TABLET) 875 Mg Tb, 875 MG PO BID for 3 Days, #6 TAB Prov:CLAUDY LANG RESIDENT 11/29/24 Reported Medications Isosorbide Dinitrate (Isosorbide Dinitrate) 10 Mg Tab, 10 MG PO BID, TAB 11/27/24 Enalapril Maleate (Enalapril Maleate) 20 Mg Tab, 20 MG PO BID, TAB 11/27/24 Clopidogrel Bisulfate (CLOPIDOGREL) 75 Mg Tab, 75 MG PO DAILY, TAB 11/27/24 Atorvastatin Calcium (ATORVASTATIN CALCIUM) 40 Mg Tab, 40 MG PO DAILY, TAB 11/27/24 Hydrochlorothiazide (Hydrochlorothiazide) 12.5 Mg Tab, 12.5 MG PO DAILY, TAB 11/27/24 Apixaban Base (ELIQUIS) 5 Mg Tab, 5 MG PO BID, TAB 11/27/24 Amlodipine Besylate (Amlodipine Besylate) 5 Mg Tab, 5 MG PO BID, MG 11/27/24 Amiodarone Hcl (Amiodarone Hcl) 200 Mg Tab, 200 MG PO DAILY 11/27/24 Pantoprazole Sodium Sesquihydr (Pantoprazole Sodium) 40 Mg Tab, 40 MG PO BID, TAB 11/27/24 Information Source: Patient, Emergency Med Personnel Mode of Arrival: EMS Severity: Moderate Timing: Hours Duration: Since onset Prehospital treatment: 12 Lead EKG, ASA, Batch Analyst, IVF, NTG, Oxygen Past Medical History PAST MEDICAL HISTORY: AFIB, CAD, COPD, GERD, High Lipids, HTN, MS (NSTEMI type II ) Past Medical History (Other): Hepatitis C Surgical History: Pacemaker Surgical History (Other): PCI in 2021 Cardiac ablation Family History Family History: Reviewed,noncontributory to illness Social History Smoker: Non-Smoker Alcohol: Denies ETOH Use Drugs: Denies Drug Use Lives In: Home All Other Systems: Reviewed and Negative (Comprehensive systems review obtained and negative except for what is stated in the HPI.) Physical Exam General Appearance: No Apparent Distress, Normal HEENT: Normal ENT Inspection, Pharynx Normal, TMs Normal Neck: Full Range of Motion, Non-Tender, Normal, Normal Inspection Respiratory: Chest Non-Tender, Crackles (bilaterally), No Accessory Muscle Use, No Respiratory Distress, Other (tachpneic) Cardiovascular: No Edema, No JVD, No Murmur, No Gallop, Normal Peripheral Pulses, Regular Rate/Rhythm Breast Exam: Deferred Gastrointestinal: No Organomegaly, Non Tender, No Pulsatile Mass, Normal Bowel Sounds, Soft Genitalia: Deferred Pelvic: Deferred Rectal: Deferred Extremities: No calf tenderness, Normal capillary refill, Normal inspection, Normal range of motion, Non-tender, No pedal edema Musculoskeletal : Apperance: Normal Neurologic: Alert, director market intelligence II-XII nml as Tested, No Motor Deficits, Normal Affect, Normal Mood, No Sensory Deficits Cerebellar Function: Normal Reflexes: Normal Skin: Dry, Normal Color, Warm Lymphatic: No Adenopathy Was a procedure done? Was a procedure done?: No EKG EKG : Pulse Rate (adult): 76 [place]: Normal Cardiac Rhythm: Paced (atrial ) Block: None Hypertrophy: None ST: Normal Differential Dx Considerations may include: Acute COPD exacerbation, PE, MS, ACS, URI, PNA, hypoxic respiratory failure, angina, among others X-Ray, Labs, Meds, VS Vital Signs Date Time Temp Pulse Resp B/P (MAP) Pulse Ox O2 Delivery O2 Flow Rate FiO2 08/02/25 23:33 74 08/02/25 21:06 75 08/02/25 20:30 76 08/02/25 20:21 99.3 74 74 133/67 92 99.3 08/02/25 20:10 76 Lab Test 08/02/25 23:18 08/02/25 21:24 08/02/25 20:30 Range/Units Lactic Acid Level 1.3 0.4-2.0 mmol/L Troponin I High Sensitivity 4 7 4 </=54 ng/L White Blood Count 18.5 H 4.4-10.8 10^3/uL Red Blood Count 4.22 L 4.5-5.90 10^6/uL Hemoglobin 13.3 L 13.5-17.5 g/dL Hematocrit 39.0 L 41.0-53.0 % Mean Corpuscular Volume 92.3 80.0-100.0 fL Mean Corpuscular Hemoglobin 31.5 28.0-32.0 pg Mean Corpuscular Hemoglobin Concent 34.1 32.0-36.0 g/dL Red Cell Distribution Width 14.8 H 11.8-14.3 % Platelet Count 239 140-450 10^3/uL Mean Platelet Volume 7.6 6.9-10.8 fL Neutrophils (%) (Auto) 83.8 H 37.0-80.0 % Lymphocytes (%) (Auto) 6.6 L 10.0-50.0 % Monocytes (%) (Auto) 8.5 0.0-12.0 % Eosinophils (%) (Auto) 0.5 0.0-7.0 % Basophils (%) (Auto) 0.6 0.0-2.0 % Neutrophils # (Auto) 15.5 H 1.6-8.6 10 ^3/uL Lymphocytes # (Auto) 1.2 0.4-5.4 10 ^3/uL Monocytes # (Auto) 1.6 H 0-1.3 10 ^3/uL Eosinophils # (Auto) 0.1 0-0.8 10 ^3/uL Basophils # (Auto) 0.1 0-0.2 10 ^3/uL Nucleated Red Blood Cells 0.0 % Sodium Level 130 L 136-145 mmol/L Potassium Level 4.5 3.5-5.1 mmol/L Chloride Level 98 98-107 mmol/L Carbon Dioxide Level 24 20-31 mmol/L Anion Gap 8 5-15 Blood Urea Nitrogen 14 9-23 mg/dL Creatinine 1.02 0.700-1.30 mg/dL Glomerular Filtration Rate Calc 77 >90 mL/min BUN/Creatinine Ratio 13.7 10.0-20.0 Serum Glucose 116 H 74-106 mg/dL Calcium Level 9.1 8.7-10.4 mg/dL B-Type Natriuretic Peptide 53.18 0-100 pg/mL Current Medications Medications (Trade) Dose Ordered Sig/Gordy Route Start Time Stop Time Status Last Admin Cefepime HCl 50 ml @ 12.5 mls/hr ONCE ONCE IV 08/02/25 22:45 08/03/25 02:44 DC 08/03/25 02:05 Sodium Chloride 1,000 ml @ 1,000 mls/hr Q1H ONCE IV 08/02/25 22:45 08/02/25 23:44 DC 08/02/25 22:45 [place] [id number] Ph: [phone] DIAGNOSTIC IMAGING Diagnostic Imaging Report : [id number] Signed PATIENT: SATYA RIVERA ACCT: [id number] UNIT: [id number] : 1950 LOC: ER ROOM / BED: / AGE / SEX: 74 / M ADM STATUS: REG ER SERVICE 14 ORDERING PHYSICIAN: IOANA CURIEL MD PROCEDURE(s): CXRP - CHEST PORTABLE REASON: sob ORDER NUMBER(s): [id number], ACCESSION NUMBER(s): [id number] CHEST RADIOGRAPH Indication: sob Technique: Single frontal view of the chest was obtained Comparison: CT CT ANGIO CHEST CONTRAST on DOS: 11/27/24, XY CHEST TWO VIEWS ROUTINE on DOS: 11/25/24 FINDINGS: Lines and Tubes: Dual-chamber pacemaker in place Lungs: No focal consolidation. Pleura: No effusion. No pneumothorax. Cardiomediastinal contours: Unremarkable Bones: No acute osseous abnormality. IMPRESSION: 1. No acute cardiopulmonary disease. 2. Significant change from 11/25/2024. ATED BY: LINA WISDOM Jr., DO DICTATED DATE/TIME: 08/02/252044 SIGNED BY: LINA WISDOM Jr., DO SIGNED DATE/TIME: 08/02/252044 CC: Time of 1ST Reevaluation: 20:45 Reevaluation 1ST: Unchanged Patient Education/Counseling: Diagnosis, Treatment Family Education/Counseling: No Family Present SEPSIS Sepsis Screen Physician Orders Chest Portable (08/02/25 20:15) Electrocardigram (08/02/25 23:15) Blood Culture (08/02/25 22:36) Vital Signs Date Time Temp Pulse Resp B/P (MAP) Pulse Ox O2 Delivery O2 Flow Rate FiO2 08/02/25 23:33 74 08/02/25 21:06 75 08/02/25 20:30 76 08/02/25 20:21 99.3 74 74 133/67 92 99.3 08/02/25 20:10 76 Laboratory Tests Test 08/02/25 20:30 08/02/25 23:18 White Blood Count 18.5 10^3/uL (4.4-10.8) H Lactic Acid Level 1.3 mmol/L (0.4-2.0) Medications Medications Dose Ordered Sig/Gordy Route Start Time Stop Time Status Last Admin Dose Admin Cefepime HCl 50 ml @ 12.5 mls/hr ONCE ONCE IV 08/02/25 22:45 08/03/25 02:44 DC 08/03/25 02:05 Sodium Chloride 1,000 ml @ 1,000 mls/hr Q1H ONCE IV 08/02/25 22:45 08/02/25 23:44 DC 08/02/25 22:45 Departure 1 Departure Time of Disposition: 06:12 (Patient presented with chest pain that was concerning for possible STEMI, ACS, PE, Pneumonia, Muscle Strain, COPD, Dissection. Data: 1. I ordered and reviewed the result of at least 3 labs including a CBC, BMP, and Troponin. 2. I independently interpreted the following tests: EKG which shows _ sinus arrhythmia and Chest X-ray which shows benign chest.Risk:This patient has a high risk of morbidity due to further diagnostic testing or treatment and may suffer from an acute cardiac or respiratory disorder. Workup reveals acute chest pain and patient should be admitted for further workup and possible expert consultation. ) Impression: Primary Impression: Acute chest pain Disposition: 09 ADMITTED INPATIENT Admit to: Med Surg Condition: Serious Critical Care Note Critical Care Time?: Yes Critical care comment: Acute chest pain Authorized and Performed by: Ioana Curiel MD Total critical care time: Approximately 38 minutes Due to a high probability of clinically significant, life threatening deterioration, the patient required my highest level of preparedness to intervene emergently and I personally spent this critical care time directly and personally managing the patient. This critical care time included obtaining a history; examining the patient; pulse oximetry; ordering and review of studies; arranging urgent treatment with development of a management plan; evaluation of patient's response to treatment; frequent reassessment; and, discussions with other providers. This critical care time was performed to assess and manage the high probability of imminent, life-threatening deterioration that could result in multi-organ failure. It was exclusive of separately billable procedures and treating other patients and teaching time. Please see my other sections and the rest of the note for further information on patient assessment and treatment. Stability Stability form required: No Heart Score Heart Score: Heart Score Response (Comments) Value History Highly Suspicious 2 EKG Normal 0 Age >65 2 Risk Factors >3 or Hx ASHD 2 Troponin 1-2 x's Normal limit 1 Total 7 I personally scribed for IOANA CURIEL MD ([email or web address]) on 08/02/25 at 20:30. Electronically submitted by Rei Cartwright ([email or web address]). I personally scribed for IOANA CURIEL MD ([email or web address]) on 08/02/25 at 20:57. Electronically submitted by Rei Cartwright ([email or web address]). IOANA CURIEL MD Aug 02, 2025 20:30
[2025-08-02 20:41] LABS: Hematocrit 39.0 % (41.0-53.0); Hemoglobin 13.3 g/dL (13.5-17.5); Mean Corpuscular Hemoglobin 31.5 pg (28.0-32.0); Mean Corpuscular Volume 92.3 fL (80.0-100.0); Nucleated Red Blood Cells % 0.0 %
--- NOTE | 2025-08-02 20:47 | DVH ---
CHEST RADIOGRAPH Indication: sob Technique: Single frontal view of the chest was obtained Comparison: CT CT ANGIO CHEST CONTRAST on DOS: 11/27/24, XY CHEST TWO VIEWS ROUTINE on DOS: 11/25/24 FINDINGS: Lines and Tubes: Dual-chamber pacemaker in place Lungs: No focal consolidation. Pleura: No effusion. No pneumothorax. Cardiomediastinal contours: Unremarkable Bones: No acute osseous abnormality. IMPRESSION: 1. No acute cardiopulmonary disease. 2. Significant change from 11/25/2024.
[2025-08-02 20:51] LABS: Potassium 4.5 mmol/L (3.5-5.1)
[2025-08-02 20:52] LABS: Anion Gap 8 (5-15); Carbon Dioxide 24 mmol/L (20-31)
[2025-08-02 20:53] LABS: Calcium 9.1 mg/dL (8.7-10.4); Chloride 98 mmol/L (98-107); Sodium 130 mmol/L (136-145)
[2025-08-02 20:57] LABS: BUN/Creatinine Ratio 13.7 (10.0-20.0); Blood Urea Nitrogen 14 mg/dL (9-23)
[2025-08-02 20:58] LABS: Glucose 116 mg/dL (74-106)
--- NOTE | 2025-08-02 21:07 | ECG ---
[facility] Test Date: 2025-08-02 Test Time: 21:06:27 Pat Name: SATYA RIVERA Department: ED Room: 0285T Gender: M Binder Lockstitch: JAZZY : 1950 Requested By: IOANA CURIEL Order Number: [id number] Reading MD: Ramin Page Measurements Intervals [place] Rate: 75 P: 0 CA: 120 QRS: 122 QRSD: 145 T: 30 QT: 418 QTc: 467 Interpretive Statements A-V dual-paced complexes w/ some inhibition No further analysis attempted due to paced rhythm Electronically Signed On 08-05-2025 16:59:39 PDT by Ramin Page Please click the below link to view image of tracing.
[2025-08-02] MEDS: SODIUM CHLORIDE 0.9% 1,000 ML IV ONE (22:45)
[2025-08-03] MEDS: CEFEPIME 2GM/50ML NS 50 ML IV ONE (02:05)
--- NOTE | 2025-08-03 02:09 | ECG ---
[facility] Test Date: 2025-08-02 Test Time: 23:33:34 Pat Name: SATYA RIVERA Department: ED Room: 0285T Gender: M Loss Prevention Analyst: JAZZY : 1950 Requested By: IOANA CURIEL Order Number: [id number] Reading MD: Ramin Page Measurements Intervals [place] Rate: 74 P: 37 MO: 206 QRS: 139 QRSD: 142 T: -10 QT: 411 QTc: 456 Interpretive Statements A-V dual-paced rhythm with some inhibition No further analysis attempted due to paced rhythm Electronically Signed On 08-05-2025 17:00:21 PDT by Ramin Page Please click the below link to view image of tracing.
--- NOTE | 2025-08-03 06:28 | ECG ---
[facility] Test Date: 2025-08-02 Test Time: 20:09:42 Pat Name: SATYA RIVERA Department: Room: 0285T Gender: M Guide Rail Cleaner: JAZZY : 1950 Requested By: IOANA CURIEL Order Number: [id number] Reading MD: Ramin Page Measurements Intervals [place] Rate: 76 P: 0 SD: 196 QRS: -79 QRSD: 157 T: 85 QT: 449 QTc: 505 Interpretive Statements Atrial-paced complexes Nonspecific IVCD with LAD LVH with secondary repolarization abnormality Anterior infarct, old Electronically Signed On 08-05-2025 16:59:36 PDT by Ramin Page Please click the below link to view image of tracing.
--- NOTE | 2025-08-03 08:26 | DVHHP2 ---
History of Present Illness Reason for Visit: Chest pain History of Present Illness Tray Faye is a 74-year-old male with past medical history of CVA, hypertension, hyperlipidemia, ND with cardiac stents, coronary artery disease, pacemaker, atrial fibrillation with 2 ablations, and GERD, who came to the hospital for shortness of breath and chest pain. He states the shortness of breath started suddenly and then the chest pain followed. His chest pain is on the left side of his chest and worse when he takes a deep breath. He states he has never been diagnosed with any respiratory diseases, but has recently had 2 episodes, with this being his 3rd, of severe shortness of breath. Patient had a cardiac ablation in November of 2024. Two days after the procedure he was in the hospital for shortness of breath. Last month he went to [place], and was experiencing shortness of breath with hypoxia. ECHO completed here in November of 2024 shows EF of 55-60%. Cardiovascular: AFIB, CAD, HTN, ND, hyperipidemia, Other (Pacemaker) GI: GERD Past Surgical History: Appendectomy, Cholecystectomy, Other (Neck surgery, cardiac ablation x 2, pacemaker,) Smoke: No ALCOHOL: occassional Drugs: None Lives: with Family Domestic Violence: Neg Review of Systems Constitutional: No: Fever, Chills, Sweats, Weakness, Malaise, Other Eyes: No: Pain, Vision change, Conjunctivae inflammation, Eyelid inflammation, Other, Redness ENT: No: Ear pain, Ear discharge, Nose pain, Nose discharge, Nose congestion, Mouth pain, Mouth swelling, Throat pain, Throat swelling, Other Respiratory: Shortness of breath, SOB with excertion; No: Cough, Dry, Wheezing, Hemoptysis, Pleuritic Pain, Sputum, Wheezing, Other Cardiovascular: Chest Pain; No: Palpitations, Orthopnea, Paroxysmal Noc. Dyspnea, Edema, Lt Headedness, Other Gastrointestinal: No: Nausea, Vomiting, Abdominal Pain, Diarrhea, Constipation, Melena, Hematochezia, Other Genitourinary: No Dysuria, No Frequency, No Incontinence, No Hematuria, No Retention, No Other Musculoskeletal: No: other, neck pain, shoulder pain, arm pain, back pain, hand pain, leg pain, foot pain Skin: No: Rash, Lesions, Jaundice, Bruising, Other Neurological: No: Weakness, Numbness, Incoordination, Change in speech, Confusion, Seizures, Other Allergies: Coded Allergies: NO KNOWN ALLERGIES (Unverified , 06/13/22) Medications Current Medications Medications Dose Ordered Sig/Gordy Route Start Time Stop Time Status Last Admin Dose Admin Sodium Chloride 10 ml Q8HR IV 08/03/25 14:00 UNV Acetaminophen/ Hydrocodone Bitart 1 tab Q4HP PRN PO 08/03/25 08:30 UNV Ondansetron HCl 4 mg Q4HP PRN IV 08/03/25 08:30 UNV Docusate Sodium 100 mg BIDPRN PRN PO 08/03/25 08:30 UNV Acetaminophen 650 mg Q6HP PRN PO 08/03/25 08:30 UNV Nitroglycerin 0.4 mg Q5MINP PRN SL 08/03/25 08:30 UNV Morphine Sulfate 2 mg Q30M PRN IV 08/03/25 08:30 UNV Exam Vital Signs Vital Signs Date Time Temp Pulse Resp B/P (MAP) Pulse Ox O2 Delivery O2 Flow Rate FiO2 08/02/25 23:33 74 08/02/25 20:21 99.3 74 133/67 92 99.3 General Appearance: Alert, Oriented X3, Cooperative, moderate distress HEENT: Atraumatic, PERRLA, Mucous membr. moist/pink Respiratory: Other (Diminished breath sounds) Cardiovascular: Regular rate, Normal S1, Normal S2, No murmurs Abdominal: Normal bowel sounds, Soft, No tenderness Extremities: No clubbing, No cyanosis, No edema, Normal pulses, No tenderness /swelling Skin: No rashes, No breakdown, No significant lesion Neuro: Normal gait, Normal speech, Strength at 5/5 X4 ext Psych/Mental Status: Mental status NL, Mood NL Labs/Xrays Labs Test 08/02/25 23:18 08/02/25 20:30 Range/Units Lactic Acid Level 1.3 0.4-2.0 mmol/L Troponin I High Sensitivity 4 </=54 ng/L White Blood Count 18.5 H 4.4-10.8 10^3/uL Red Blood Count 4.22 L 4.5-5.90 10^6/uL Hemoglobin 13.3 L 13.5-17.5 g/dL Hematocrit 39.0 L 41.0-53.0 % Mean Corpuscular Volume 92.3 80.0-100.0 fL Mean Corpuscular Hemoglobin 31.5 28.0-32.0 pg Mean Corpuscular Hemoglobin Concent 34.1 32.0-36.0 g/dL Red Cell Distribution Width 14.8 H 11.8-14.3 % Platelet Count 239 140-450 10^3/uL Mean Platelet Volume 7.6 6.9-10.8 fL Neutrophils (%) (Auto) 83.8 H 37.0-80.0 % Lymphocytes (%) (Auto) 6.6 L 10.0-50.0 % Monocytes (%) (Auto) 8.5 0.0-12.0 % Eosinophils (%) (Auto) 0.5 0.0-7.0 % Basophils (%) (Auto) 0.6 0.0-2.0 % Neutrophils # (Auto) 15.5 H 1.6-8.6 10 ^3/uL Lymphocytes # (Auto) 1.2 0.4-5.4 10 ^3/uL Monocytes # (Auto) 1.6 H 0-1.3 10 ^3/uL Eosinophils # (Auto) 0.1 0-0.8 10 ^3/uL Basophils # (Auto) 0.1 0-0.2 10 ^3/uL Nucleated Red Blood Cells 0.0 % Sodium Level 130 L 136-145 mmol/L Potassium Level 4.5 3.5-5.1 mmol/L Chloride Level 98 98-107 mmol/L Carbon Dioxide Level 24 20-31 mmol/L Anion Gap 8 5-15 Blood Urea Nitrogen 14 9-23 mg/dL Creatinine 1.02 0.700-1.30 mg/dL Glomerular Filtration Rate Calc 77 >90 mL/min BUN/Creatinine Ratio 13.7 10.0-20.0 Serum Glucose 116 H 74-106 mg/dL Calcium Level 9.1 8.7-10.4 mg/dL B-Type Natriuretic Peptide 53.18 0-100 pg/mL CHEST RADIOGRAPH FINDINGS: Lines and Tubes: Dual-chamber pacemaker in place Lungs: No focal consolidation. Pleura: No effusion. No pneumothorax. Cardiomediastinal contours: Unremarkable Bones: No acute osseous abnormality. IMPRESSION: 1. No acute cardiopulmonary disease. 2. Significant change from 11/25/2024. SEPSIS Sepsis Screen Date sepsis recognized/suspect: Aug 02, 2025 Time Sepsis recognized/suspect: 2028 Recent Procedure: No On Antibiotic Therapy: No Respiratory Rate >20: No Heart Rate >90: No Temp<36 C (96.8 F) or >38.3 C: No SBP <90 or MAP <65 mmHG: No New Acute Mental Status Change: No Is the patient on CPAP, BIPAP,: No Physician Orders Admit (08/03/25 08:21) Code Status (08/03/25 08:21) Sodium Chloride Lock (Saline Lock Ns) (08/03/25 14:00) Hydrocodone-Acet 5/325mg Tab ([place] 5/32 (08/03/25 08:30) Ondansetron Hcl (Zofran) (08/03/25 08:30) Docusate Sodium Capsule (Colace Capsule) (08/03/25 08:30) Complete Blood Count (08/04/25 04:00) Comprehensive Metabolic Panel (08/04/25 04:00) Cardiac Diet-2gna,Lofat,Lochol (08/03/25 Breakfast) Condition: Serious (08/03/25 08:21) Acetaminophen Tablet (Tylenol Tablet) (08/03/25 08:30) Nitroglycerin Sublingual (Ntrostat Subli (08/03/25 08:30) Morphine Sulfate Injection (08/03/25 08:30) Stat Ekg For Chest Pain (08/03/25 08:21) Notify Of Changes From Base (08/03/25 08:21) Coal Sample Tester For 24 Hours (08/03/25 08:21) Emergency Dysrhythmia Protocol (08/03/25 08:21) Rhythm Strips Once Every Shift (08/03/25 08:21) Oxygen By Nasal Cannula (08/03/25 08:21) Laboratory Tests Test 08/02/25 20:30 08/02/25 23:18 White Blood Count 18.5 10^3/uL (4.4-10.8) H Lactic Acid Level 1.3 mmol/L (0.4-2.0) Medications Medications Dose Ordered Sig/Gordy Route Start Time Stop Time Status Last Admin Dose Admin Cefepime HCl 50 ml @ 12.5 mls/hr ONCE ONCE IV 08/02/25 22:45 08/03/25 02:44 DC 08/03/25 02:05 12.5 MLS/HR Sodium Chloride 1,000 ml @ 1,000 mls/hr Q1H ONCE IV 08/02/25 22:45 08/02/25 23:44 DC 08/02/25 22:45 1,000 MLS/HR Assessment/Plan Assessment/Plan Assessment: Acute chest pain, Acute respiratory distress with hypoxia, Hypertension, Hyperlipidemia, GERD, Atrial fibrillation, Plan: Admit to Tele, Cardiology consult, Breathing treatments, Supplemental oxygen as needed, IV steroids, Home medications reconciled, Plan discussed with: Patient My Orders Orders - TRESA BLAND Procedure Category Date Status Time Admit ADMIT 08/03/25 Transmitted 08:21 Code Status CODE 08/03/25 Transmitted 08:21 Sodium Chloride Lock PHA 08/03/25 Logged (Saline Lock Ns) 14:00 Hydrocodone-Acet PHA 08/03/25 Logged 5/325mg Tab ([place] 08:30 Ondansetron Hcl PHA 08/03/25 Logged (Zofran) 08:30 Docusate Sodium [facility] 08/03/25 Logged Capsule (Colace 08:30 Complete Blood Count LAB 08/04/25 Verified 04:00 Comprehensive LAB 08/04/25 Verified Metabolic Panel 04:00 Cardiac DIET 08/03/25 Transmitted Diet-2gna,Lofat,Lochol Breakfast Condition: Serious [facility] 08/03/25 In Process 08:21 Acetaminophen Tablet [facility] 08/03/25 Logged (Tylenol Tablet) 08:30 Nitroglycerin PHA 08/03/25 Logged Sublingual (Ntrostat 08:30 Morphine Sulfate [facility] 08/03/25 Logged Injection 08:30 Stat Ekg For Chest [facility] 08/03/25 In Process Pain 08:21 Notify Of Changes [facility] 08/03/25 In Process From Base 08:21 Coal Sample Tester For [facility] 08/03/25 In Process 24 Hours 08:21 Emergency Dysrhythmia [facility] 08/03/25 In Process Protocol 08:21 Rhythm Strips Once [facility] 08/03/25 In Process Every Shift 08:21 Oxygen By Nasal RT 08/03/25 Transmitted Cannula 08:21 Date of Service: Aug 03, 2025 Billing Provider: TRESA BLAND Common Visit Codes: [id number] INP/OBS CARE (MOD) TRESA BLAND Aug 03, 2025 08:26
[2025-08-03] MEDS ORDERED: IPRATROPIUM BROM 0.5 MG/2.5ML INH SOL NEB PRN (08:30)
[2025-08-03] MEDS ORDERED: HYDROcodone-ACET 5/325MG TAB PO PRN (08:30)
[2025-08-03] MEDS ORDERED: ACETAMINOPHEN 325 MG TAB PO PRN (08:30)
[2025-08-03] MEDS ORDERED: ALBUTEROL SULF 2.5 MG/0.5ML(0.5%) NEB SOLN NEB PRN (08:30)
[2025-08-03] MEDS ORDERED: DOCUSATE SOD 100 MG CAP PO PRN (08:30)
[2025-08-03] MEDS ORDERED: ONDANSETRON HCL 4 MG/2 ML VIAL IV PRN (08:30)
[2025-08-03] MEDS ORDERED: PATIENTS OWN MEDICATION (Atorvastatin Calcium 40 MG) PO SCH (10:00)
[2025-08-03] MEDS ORDERED: ENALAPRIL MALEATE 20 MG PO SCH (10:00)
[2025-08-03] MEDS ORDERED: PATIENTS OWN MEDICATION (Hydrochlorothiazide 12.5 MG) PO SCH (10:00)
[2025-08-03] MEDS: SODIUM CHLOR 0.9% PF (SALINE LOCK) 10ML VIAL/SYR IV SCH (14:00)
[2025-08-03] MEDS: PANTOPRAZOLE 40 MG TAB PO SCH (14:43)
[2025-08-03] MEDS: APIXABAN 5 MG TAB PO SCH (14:45)
[2025-08-03] MEDS: methylPREDNISolone SOD SUCC 40 MG/ML VL IV SCH (14:52)
[2025-08-03 21:55] LABS: Urine Protein, UAD TRACE (Negative)
[2025-08-03 22:40] VITALS: BP 145/74; PULSE 81; RESP 18; TEMP 98.7; O2SAT 96
[2025-08-03 22:52] VITALS: BP 145/74; PULSE 81; RESP 18; TEMP 98.4; O2SAT 96
[2025-08-03] MEDS: ATORVASTATIN 20 MG TAB PO SCH (23:06)
[2025-08-03] MEDS: ENALAPRIL MALEATE 10 MG TAB PO SCH (23:08)
[2025-08-04] VITALS (14 sets, daily range): BP systolic 126–148; BP diastolic 67–85; PULSE 70–84; RESP 18–20; TEMP 97–98.6; O2SAT 96–99
[2025-08-04 06:26] LABS: Hematocrit 36.2 % (41.0-53.0); Hemoglobin 12.5 g/dL (13.5-17.5); Mean Corpuscular Hemoglobin 32.0 pg (28.0-32.0); Mean Corpuscular Volume 92.3 fL (80.0-100.0); Nucleated Red Blood Cells % 0.0 %
[2025-08-04 06:36] LABS: Alanine Aminotransferase 20 U/L (7-40); Albumin 4.5 g/dL (3.2-4.8); Alkaline Phosphatase 92 U/L (46-116); Anion Gap 9 (5-15); Calcium 9.3 mg/dL (8.7-10.4); Carbon Dioxide 23 mmol/L (20-31); Chloride 101 mmol/L (98-107); Potassium 4.5 mmol/L (3.5-5.1); Total Protein 6.9 g/dL (5.7-8.2)
[2025-08-04 06:37] LABS: Bilirubin, Total 0.5 mg/dL (0.2-1.0)
[2025-08-04 07:10] LABS: Glucose 163 mg/dL (74-106); Sodium 133 mmol/L (136-145)
--- NOTE | 2025-08-04 07:49 | DVHINCON2 ---
Date of service: Aug 04, 2025 History of Present Illness 74 yo M with hx of cad s/p pci to oRCA with now RCA CLINICAL RESEARCH DIRECTOR done at [facility], hx of ppm , hx of afib s/p ablation x 2 at [facility] EP group admitted for chest pain and sob. trops are -. pt was planned for lexiscan next week Past Medical History reviewed Family History: FH: [place] (myocardial infarction) G8 MOTHER, G8 FATHER, Allergies: Coded Allergies: NO KNOWN ALLERGIES (Unverified , 06/13/22) Home Meds Reported Medications Isosorbide Dinitrate (Isosorbide Dinitrate) 10 Mg Tab, 10 MG PO BID, TAB 11/27/24 Enalapril Maleate (Enalapril Maleate) 20 Mg Tab, 20 MG PO BID, TAB 11/27/24 Clopidogrel Bisulfate (CLOPIDOGREL) 75 Mg Tab, 75 MG PO DAILY, TAB 11/27/24 Atorvastatin Calcium (ATORVASTATIN CALCIUM) 40 Mg Tab, 40 MG PO DAILY, TAB 11/27/24 Hydrochlorothiazide (Hydrochlorothiazide) 12.5 Mg Tab, 12.5 MG PO DAILY, TAB 11/27/24 Apixaban Base (ELIQUIS) 5 Mg Tab, 5 MG PO BID, TAB 11/27/24 Amlodipine Besylate (Amlodipine Besylate) 5 Mg Tab, 5 MG PO BID, MG 11/27/24 Amiodarone Hcl (Amiodarone Hcl) 200 Mg Tab, 200 MG PO DAILY 11/27/24 Pantoprazole Sodium Sesquihydr (Pantoprazole Sodium) 40 Mg Tab, 40 MG PO BID, TAB 11/27/24 Discontinued Scripts Amoxicillin & Pot Clavulanate (AUGMENTIN TABLET) 875 Mg Tb, 875 MG PO BID for 3 Days, #6 TAB Prov:CLAUDY LANG RESIDENT 11/29/24 Current Medications Current Medications Medications (Trade) Dose Ordered Sig/Gordy Route PRN Reason Start Time Stop Time Status Last Admin Sodium Chloride (Saline Lock Ns) 10 ml Q8HR IV 08/03/25 14:00 08/04/25 06:34 Acetaminophen/ Hydrocodone Bitart ([place] 5/325MG Tab) 1 tab Q4HP PRN PO MODERATE PAIN (4-6 PAIN SCALE) 08/03/25 08:30 Ondansetron HCl (Zofran) 4 mg Q4HP PRN IV NAUSEA / VOMITING 08/03/25 08:30 Docusate Sodium (Colace Capsule) 100 mg BIDPRN PRN PO FOR CONSTIPATION 08/03/25 08:30 Acetaminophen (Tylenol Tablet) 650 mg Q6HP PRN PO PAIN SCALE 1-3 OR TEMP>100.4 08/03/25 08:30 Nitroglycerin (Ntrostat Sublingual) 0.4 mg Q5MINP PRN SL FOR CHEST PAIN 08/03/25 08:30 Morphine Sulfate 2 mg Q30M PRN IV FOR CHEST PAIN 08/03/25 08:30 Ipratropium [place] (Atrovent Medneb) 0.5 mg Q4HPRN PRN NEB SHORTNESS OF BREATH 08/03/25 08:30 Albuterol (Ventolin Medneb) 2.5 mg Q4HPRN PRN NEB SHORTNESS OF BREATH 08/03/25 08:30 Amlodipine Besylate (Norvasc Tablet) 5 mg BID PO 08/03/25 10:00 08/03/25 23:09 Apixaban (Eliquis) 5 mg BID PO 08/03/25 10:00 08/03/25 23:08 Pantoprazole Sodium (Protonix Tablet) 40 mg BID PO 08/03/25 10:00 08/03/25 23:09 Patient Own Medication 40 mg DAILY PO 08/03/25 10:00 UNV Patient Own Medication 20 mg BID PO 08/03/25 10:00 UNV Patient Own Medication 12.5 mg DAILY PO 08/03/25 10:00 UNV Methylprednisolone Sodium Succinate (Solu Medrol) 40 mg BID IV 08/03/25 10:00 08/03/25 23:09 Atorvastatin Calcium (Lipitor) 40 mg HS PO 08/03/25 22:00 08/03/25 23:06 Hydrochlorothiazide (hydroCHLOROthiazide TABLET) 12.5 mg DAILY PO 08/04/25 10:00 Enalapril Maleate (Vasotec Tablet) 20 mg BID PO 08/03/25 22:00 08/03/25 23:08 Ceftriaxone Sodium 50 ml @ 100 mls/hr DAILY@09 IV 08/04/25 09:00 Ceftriaxone Sodium 50 ml @ 100 mls/hr DAILY@09 IV 08/04/25 09:00 Review of Systems 10 pt ros othewise negative Vital Signs Vital Signs Date Time Temp Pulse Resp B/P (MAP) Pulse Ox O2 Delivery O2 Flow Rate FiO2 08/04/25 06:51 97 Nasal Cannula 2.0 08/04/25 06:51 28 08/04/25 05:00 98.4 73 18 142/77 (98) 98.4 Physical Exam nad s1 s2 rrr ctab soft nt/n d no edema Labs/Diagnostic Data Labs Test 08/04/25 05:30 08/03/25 21:30 08/03/25 17:48 08/02/25 23:18 Range/Units White Blood Count 9.4 # 4.4-10.8 10^3/uL Red Blood Count 3.92 L 4.5-5.90 10^6/uL Hemoglobin 12.5 L 13.5-17.5 g/dL Hematocrit 36.2 L 41.0-53.0 % Mean Corpuscular Volume 92.3 80.0-100.0 fL Mean Corpuscular Hemoglobin 32.0 28.0-32.0 pg Mean Corpuscular Hemoglobin Concent 34.6 32.0-36.0 g/dL Red Cell Distribution Width 14.7 H 11.8-14.3 % Platelet Count 216 140-450 10^3/uL Mean Platelet Volume 8.1 6.9-10.8 fL Neutrophils (%) (Auto) 88.0 H 37.0-80.0 % Lymphocytes (%) (Auto) 8.4 L 10.0-50.0 % Monocytes (%) (Auto) 3.5 0.0-12.0 % Eosinophils (%) (Auto) 0.0 0.0-7.0 % Basophils (%) (Auto) 0.1 0.0-2.0 % Neutrophils # (Auto) 8.3 1.6-8.6 10 ^3/uL Lymphocytes # (Auto) 0.8 0.4-5.4 10 ^3/uL Monocytes # (Auto) 0.3 0-1.3 10 ^3/uL Eosinophils # (Auto) 0 0-0.8 10 ^3/uL Basophils # (Auto) 0 0-0.2 10 ^3/uL Nucleated Red Blood Cells 0.0 % Sodium Level 133 L 136-145 mmol/L Potassium Level 4.5 3.5-5.1 mmol/L Chloride Level 101 98-107 mmol/L Carbon Dioxide Level 23 20-31 mmol/L Anion Gap 9 5-15 Blood Urea Nitrogen 19 9-23 mg/dL Creatinine 0.85 0.700-1.30 mg/dL Glomerular Filtration Rate Calc 91 >90 mL/min Serum Glucose 163 H 74-106 mg/dL Calcium Level 9.3 8.7-10.4 mg/dL Total Bilirubin 0.5 0.2-1.0 mg/dL Aspartate Amino Transferase (AST) 19 13-40 U/L Alanine Aminotransferase (ALT) 20 7-40 U/L Alkaline Phosphatase 92 46-116 U/L Total Protein 6.9 5.7-8.2 g/dL Albumin 4.5 3.2-4.8 g/dL Urine Color Yellow Yellow Urine Clarity Clear Clear Urine pH 5.5 5.0-9.0 Urine Specific [place] 1.019 1.001-1.035 Urine Protein Trace H Negative Urine Ketones Negative Negative Urine Blood Negative Negative /uL Urine Nitrite Negative Negative Urine Bilirubin Negative Negative Urine Urobilinogen Normal Negative mg/dL Urine Leukocyte Esterase Negative Negative /uL Urine RBC 1 0 - 3 /hpf Urine Microscopic WBC 1 0-3 /HPF Urine Squamous Epithelial Cells Few <5 /hpf Urine Bacteria None seen None Seen /hpf Urine Mucus Few None Seen Urine Glucose Normal Normal mg/dL Erythrocyte Sedimentation Rate 27 H 0-20 mm/hr C-Reactive Protein High Sensitivity 8.95 H <1.0 mg/dL Lactic Acid Level 1.3 0.4-2.0 mmol/L Troponin I High Sensitivity 4 </=54 ng/L Test 08/02/25 20:30 Range/Units B-Type Natriuretic Peptide 53.18 0-100 pg/mL Microbiology Date/Time Source Procedure Growth Status 08/02/25 23:24 Blood Blood Culture - Preliminary NO GROWTH AFTER 24 HOURS OF INCUBATION. Resulted Assessment cad afib hx of PPM sick sinus htn hl Plan/Recommendation stress mpi shows old inferior infarct no ischemia no cad on L side of coronaries lvef preserved on last echo get ppm check pulm eval onogoing for unexplained symptoms Plan discussed with: Patient TACOHANS Ryan MD Aug 04, 2025 07:49
[2025-08-04 08:24] LABS: BUN/Creatinine Ratio 22.4 (10.0-20.0); Blood Urea Nitrogen 19 mg/dL (9-23)
[2025-08-04] MEDS: hydroCHLOROthiazide 25 MG TAB PO SCH (09:03)
[2025-08-04] MEDS: REGADENOSON 0.4 MG/5 ML SYRG IV ONE (10:54)
--- NOTE | 2025-08-04 14:07 | DVHPN2 ---
Subjective Patient reports shortness of breath has improved. Reviewed: Care Plan, H&P, Labs, Medications, Previous Orders Changes from previous H/P or p: No Changes General: Per HPI Eyes: No Pain, No Vision change, No Conjunctivae inflammation, No Eyelid inflammation, No Other, No Redness ENT: No Ear pain, No Ear discharge, No Nose pain, No Nose discharge, No Nose congestion, No Mouth pain, No Mouth swelling, No Throat pain, No Throat swelling, No Other Cardiovascular: Chest Pain; No Palpitations, No Orthopnea, No Paroxysmal Noc. Dyspnea, No Edema, No Lt Headedness, No Other Respiratory: No Cough, No Dry; Shortness of breath, SOB with excertion; No Wheezing, No Hemoptysis, No Pleuritic Pain, No Sputum, No Other Gastrointestinal: No Nausea, No Vomiting, No Abdominal Pain, No Diarrhea, No Constipation, No Melena, No Hematochezia, No Other Genitourinary: No Dysuria, No Frequency, No Incontinence, No Hematuria, No Retention, No Other Musculoskeletal: No other, No neck pain, No shoulder pain, No arm pain, No back pain, No hand pain, No leg pain, No foot pain Skin: No Rash, No Lesions, No Jaundice, No Bruising, No Other Objective Vitals Vital Signs Date Time Temp Pulse Resp B/P (MAP) Pulse Ox O2 Delivery O2 Flow Rate FiO2 08/04/25 10:00 97 Nasal Cannula 2.0 08/04/25 10:00 28 08/04/25 09:03 129/85 08/04/25 09:00 97.9 70 18 97.9 Intake/Output Intake and Output 08/04/25 07:00 Intake Total 0 ml Output Total 0 ml Balance 0 ml Intake Oral 0 ml Output Urine Total 0 ml General Appearance: Alert, Oriented X3, Cooperative, mild distress HEENT: Atraumatic, PERRLA Lungs: Clear to auscultation, Normal air movement Cardiovascular: Normal S1, Normal S2 Abdomen: Normal bowel sounds, Soft, No tenderness, No hepatospenomegaly Musculoskeletal: Normal sensory function, Normal motor function Skin: Dry, Intact Psych/Mental Status: Mental status NL, Mood NL Medications Current Medications Medications Dose Ordered Sig/Gordy Route Start Time Stop Time Status Last Admin Dose Admin Sodium Chloride 10 ml Q8HR IV 08/03/25 14:00 08/04/25 06:34 10 ML Acetaminophen/ Hydrocodone Bitart 1 tab Q4HP PRN PO 08/03/25 08:30 Ondansetron HCl 4 mg Q4HP PRN IV 08/03/25 08:30 Docusate Sodium 100 mg BIDPRN PRN PO 08/03/25 08:30 Acetaminophen 650 mg Q6HP PRN PO 08/03/25 08:30 Nitroglycerin 0.4 mg Q5MINP PRN SL 08/03/25 08:30 Morphine Sulfate 2 mg Q30M PRN IV 08/03/25 08:30 Ipratropium [place] 0.5 mg Q4HPRN PRN NEB 08/03/25 08:30 Albuterol 2.5 mg Q4HPRN PRN NEB 08/03/25 08:30 Amlodipine Besylate 5 mg BID PO 08/03/25 10:00 08/04/25 09:03 5 MG Apixaban 5 mg BID PO 08/03/25 10:00 08/04/25 09:02 5 MG Pantoprazole Sodium 40 mg BID PO 08/03/25 10:00 08/04/25 09:03 40 MG Patient Own Medication 40 mg DAILY PO 08/03/25 10:00 UNV Patient Own Medication 20 mg BID PO 08/03/25 10:00 UNV Patient Own Medication 12.5 mg DAILY PO 08/03/25 10:00 UNV Methylprednisolone Sodium Succinate 40 mg BID IV 08/03/25 10:00 08/04/25 09:04 40 MG Atorvastatin Calcium 40 mg HS PO 08/03/25 22:00 08/03/25 23:06 40 MG Hydrochlorothiazide 12.5 mg DAILY PO 08/04/25 10:00 Enalapril Maleate 20 mg BID PO 08/03/25 22:00 08/04/25 09:02 20 MG Ceftriaxone Sodium 50 ml @ 100 mls/hr DAILY@09 IV 08/04/25 09:00 08/04/25 09:01 100 MLS/HR Laboratory Results Laboratory Tests 08/04/25 05:30 Chemistry Test 08/04/25 05:30 Albumin 4.5 g/dL (3.2-4.8) Calcium Level 9.3 mg/dL (8.7-10.4) Total Protein 6.9 g/dL (5.7-8.2) LFT Test 08/04/25 05:30 Alanine Aminotransferase (ALT) 20 U/L (7-40) Alkaline Phosphatase 92 U/L (46-116) Aspartate Amino Transferase (AST) 19 U/L (13-40) Total Bilirubin 0.5 mg/dL (0.2-1.0) Urinalysis Test 08/03/25 21:30 Urine Color Yellow (Yellow) Urine Clarity Clear (Clear) Urine pH 5.5 (5.0-9.0) Urine Specific [place] 1.019 (1.001-1.035) Urine Protein Trace (Negative) H Urine Ketones Negative (Negative) Urine Blood Negative /uL (Negative) Urine Nitrite Negative (Negative) Urine Bilirubin Negative (Negative) Urine Urobilinogen Normal mg/dL (Negative) Urine Leukocyte Esterase Negative /uL (Negative) Urine RBC 1 /hpf (0 - 3) Urine Microscopic WBC 1 /HPF (0-3) Urine Squamous Epithelial Cells Few /hpf (<5) Urine Bacteria None seen /hpf (None Seen) Urine Mucus Few (None Seen) Urine Glucose Normal mg/dL (Normal) Microbiology Microbiology Date/Time Source Procedure Growth Status 08/02/25 23:24 Blood Blood Culture - Preliminary NO GROWTH AFTER 24 HOURS OF INCUBATION. Resulted Labs and/or images reviewed: Labs reviewed by me, Image(s) reviewed by me Assessment/Plan Assessment/Plan Impression: -acute hypoxic respiratory failure -rule out acute systolic heart failure -history of cardiac ablation with pacemaker implant -primary hypertension -GERD -history of nicotine dependence -rule out ACS Plan: -cardiology consultation: Cardiolite stress test results pending -high-resolution CT scan to rule out questionable pneumonia, questionable underlying interstitial lung disease -continue empiric antibiotic therapy -continue PPI -hold Eliquis until Lexiscan results are back. If no indication for left heart catheterization, restart Eliquis -repeat labs in a.m. -bronchodilators Total time spent with patient discussing and formulating plan of care: 35 minutes. This medical document was created using an electronic medical record system with [employer] system. Although this document has been carefully reviewed, there may still be some phonetic and typographical errors. These areas are purely typographical due to imperfections of the software programs, and do not reflect any compromise in the patient's medical care. Plan discussed with: Patient, Other (RN) My Orders Orders - PATRICK GLASGOW NP Procedure Category Date Status Time Rapid Influenza A&B LAB 08/04/25 Logged 13:46 Covid19 Antigen Neva LAB 08/04/25 Logged D-Dimer LAB 08/04/25 Logged 13:[address] 08/04/25 Verified 13:59 Date of Service: Aug 04, 2025 Billing Provider: PATRICK GLASGOW NP Common Visit Codes: [id number] INP/OBS CARE(HIGH) PATRICK GLASGOW NP Aug 04, 2025 14:07
--- NOTE | 2025-08-04 15:15 | ECG ---
[facility] Test Date: 2025-08-04 Test Time: 15:08:15 Pat Name: SATYA RIVERA Department: [facility]atoy [facility] Gender[facility] M Pastry Cook Helper: REGAN : 1950 Requested By: PATRICK GLASGOW Order Number: [id number] Reading MD: Ramin Page Measurements Intervals [place] Rate: 80 P: 58 VT: 189 QRS: -46 QRSD: 162 T: 87 QT: 419 QTc: 484 Interpretive Statements Atrial-sensed ventricular-paced complexes No further analysis attempted due to paced rhythm Electronically Signed On 08-05-2025 14:39:45 PDT by Ramin Page Please click the below link to view image of tracing.
[2025-08-04] MEDS: NITROGLYCERIN 0.4 MG SL TAB SL PRN (15:20)
[2025-08-04 15:28] LABS: COVID19 ANTIGEN SOFIA FIA NEGATIVE (NEGATIVE)
--- NOTE | 2025-08-04 15:32 | DVH ---
Procedure: CT CHEST WITHOUT CONTRAST Reason for study/Clinical History: pna, underlying interstitial lung disease Comparison Study: XY CHEST PORTABLE on DOS: 08/02/25, CT CT ANGIO CHEST CONTRAST on DOS: 11/27/24, XY C HEST TWO VIEWS ROUTINE on DOS: 11/25/24, XY CHEST TWO VIEWS ROUTINE on DOS: 09/09/24, CT CHEST WITHOUT CONTRAST on DOS: 10/31/23 TECHNIQUE: Multidetector CT of the chest was performed from the lung apices to the upper abdomen with out the use of intravenous contract. Axial, coronal and sagittal multiplanar reformats were performed . Radiation Dose Information: CT Dose: CTDI volume is 15.11 mGy. Dose-length product is 653.88 mGy*cm The dose indicators for CT are the volume Computed Tomography (CT) Dose Index (CTDIvol) and the Dose Length Product (DLP), and are measured in units of mGy and mGy-cm, respectively. These indicators are not patient dose, but values generated from the CT scanner acquisition factors. The report includes radiation exposure data for exposures received during this examination. FINDINGS: Lower neck: Unremarkable. Lungs: Patchy airspace opacities in the left lung base. No suspicious pulmonary nodule. Heart/Vascular Structures: Cardiomegaly. Coronary artery calcifications. Vascular calcifications of t he aorta. Lymph Nodes: No adenopathy Pleura: No pleural effusion or significant pneumothorax. Musculoskeletal: No acute osseous abnormality. Degenerative changes of the spine. Soft tissues: Left chest wall pacemaker Upper abdomen: Post cholecystectomy IMPRESSION: Patchy airspace opacities in the left lung base may reflect pneumonia in the appropriate clinical set ting. Radiation optimization: All CT scans at this facility use at least one of these dose optimization tre hniques: automated exposure control mA and/or kV adjustment per patient size (includes targeted exam s where dose is matched to clinical indication) or iterative reconstruction.
[2025-08-04] MEDS: MORPHINE SULFATE INJ 2 MG/ml SYRG IV PRN (15:33)
[2025-08-04] MEDS: IPRATROPIUM BROM 0.5 MG/2.5ML INH SOL NEB SCH (19:25)
[2025-08-04] MEDS: ALBUTEROL SULF 2.5 MG/0.5ML(0.5%) NEB SOLN NEB SCH (19:25)
[2025-08-05] VITALS (15 sets, daily range): BP systolic 120–139; BP diastolic 61–83; PULSE 70–82; RESP 14–20; TEMP 97–98.3; O2SAT 94–100
--- NOTE | 2025-08-05 10:37 | ECG ---
[facility] Test Date: 2025-08-04 Test Time: 20:12:19 Pat Name: SATYA RIVERA Department: Respiratoy Room: [facility] A Gender: M Medical Device Sales Representative: GP : 1950 Requested By: MARCELINO BAÑUELOS Order Number: [id number] Reading MD: Ramin Page Measurements Intervals [place] Rate: 81 P: 79 RI: 78 QRS: -46 QRSD: 163 T: 89 QT: 421 QTc: 489 Interpretive Statements Ventricular-paced complexes No further analysis attempted due to paced rhythm Electronically Signed On 08-05-2025 14:39:46 PDT by Ramin Page Please click the below link to view image of tracing.
--- NOTE | 2025-08-05 12:30 | DVHSR ---
APPROVED REPORT Exam: Nuclear Stress Test BMI: 0 Stress Test Details Stress Test: Pharmacologic stress testing performed using 0.4 mg of regadenoson per 5 mL given IV ov er 10 seconds. HR Resting HR: 75 bpmMax Heart Rate (APMHR): 146.865745 bpm Max HR Achieved: 98 bpmTarget HR (85% APMHR): 124.617048 bpm % of APMHR: 67.12 Recovery HR: 80 bpm BP Resting BP: 141/72 mmHg Recovery BP: 128/70 mmHg ECG Resting ECG: paced Nurse Comments Recieved pt. from [employer]. A/Ox4 on RA. Connected to physical security engineer, VS stable. PIV flushes well. Re viewed POC. Pt. verbalized understanding of procedure including risks and side effects, agrees for st ress testing. Lexiscan stress test performed per protocol. [employer] tech administered Cardiolite. Pt. tolerated well . Pt. stable, no change on exam. VS returned to baseline. Transferred to [employer] via wheelchair w/ te ch. Stress ECG Conclusion lvef 60% inferior wall fixed defectd remote infarct to RCA no ischemia V pacing on ecg NM EXAM: Myocardial Perfusion REST/STRESS Imaging Protocol: Rest Tc-99m/Stress Tc-99m 1 day Resting Data Rest SPECT myocardial perfusion imaging was performed in supine position 45 minutes following the int ravenous injection of 11.8 mCi of Tc-99m Sestamibi. Time of rest injection: 0945 Time of rest imagin Administration Route: IV Administration Site: Left AC Pharmacologic Stress Pharmacologic stress test was performed by injecting Regadenoson 0.4 mg IV push followed by the intra venous injection of 29.5 mCi of Tc-99m Sestamibi. Time of stress injection: 1110 Time of stress imagin Administration Route: IV Administration Site: Left AC Gated Stress SPECT was performed 50 minutes after stress injection. The images were gated to evaluate regional wall motion and calculate left ventricular ejection fracti on. Nuclear Conclusion Nuclear Findings: negative for ischemia lvef 60% inferior wall fixed defectd remote infarct to RCA no ischemia V pacing on ecg
[2025-08-05] MEDS: REGADENOSON 0.4 MG/5 ML SYRG IV ONE (13:21)
--- NOTE | 2025-08-05 14:07 | DVHPN2 ---
Subjective Patient reports shortness of breath has improved. Reviewed: Care Plan, H&P, Labs, Medications, Previous Orders Changes from previous H/P or p: No Changes General: Per HPI Eyes: No Pain, No Vision change, No Conjunctivae inflammation, No Eyelid inflammation, No Other, No Redness ENT: No Ear pain, No Ear discharge, No Nose pain, No Nose discharge, No Nose congestion, No Mouth pain, No Mouth swelling, No Throat pain, No Throat swelling, No Other Cardiovascular: Chest Pain; No Palpitations, No Orthopnea, No Paroxysmal Noc. Dyspnea, No Edema, No Lt Headedness, No Other Respiratory: No Cough, No Dry; Shortness of breath, SOB with excertion; No Wheezing, No Hemoptysis, No Pleuritic Pain, No Sputum, No Other Gastrointestinal: No Nausea, No Vomiting, No Abdominal Pain, No Diarrhea, No Constipation, No Melena, No Hematochezia, No Other Genitourinary: No Dysuria, No Frequency, No Incontinence, No Hematuria, No Retention, No Other Musculoskeletal: No other, No neck pain, No shoulder pain, No arm pain, No back pain, No hand pain, No leg pain, No foot pain Skin: No Rash, No Lesions, No Jaundice, No Bruising, No Other Objective Vitals Vital Signs Date Time Temp Pulse Resp B/P (MAP) Pulse Ox O2 Delivery O2 Flow Rate FiO2 08/05/25 13:00 98.2 70 20 139/78 (98) 96 98.2 08/05/25 12:02 Nasal Cannula 2.0 08/05/25 12:02 28 Intake/Output Intake and Output 08/05/25 06:59 Intake Total 350 ml Balance 350 ml Intake Oral 300 ml IV Total 50 ml # Voids 7 General Appearance: Alert, Oriented X3, Cooperative, mild distress HEENT: Atraumatic, PERRLA Lungs: Clear to auscultation, Normal air movement Cardiovascular: Normal S1, Normal S2 Abdomen: Normal bowel sounds, Soft, No tenderness, No hepatospenomegaly Musculoskeletal: Normal sensory function, Normal motor function Skin: Dry, Intact Psych/Mental Status: Mental status NL, Mood NL Medications Current Medications Medications Dose Ordered Sig/Gordy Route Start Time Stop Time Status Last Admin Dose Admin Sodium Chloride 10 ml Q8HR IV 08/03/25 14:00 08/05/25 13:33 10 ML Acetaminophen/ Hydrocodone Bitart 1 tab Q4HP PRN PO 08/03/25 08:30 Ondansetron HCl 4 mg Q4HP PRN IV 08/03/25 08:30 Docusate Sodium 100 mg BIDPRN PRN PO 08/03/25 08:30 Acetaminophen 650 mg Q6HP PRN PO 08/03/25 08:30 Nitroglycerin 0.4 mg Q5MINP PRN SL 08/03/25 08:30 08/04/25 15:20 0.4 MG Morphine Sulfate 2 mg Q30M PRN IV 08/03/25 08:30 08/04/25 20:25 2 MG Amlodipine Besylate 5 mg BID PO 08/03/25 10:00 08/05/25 09:50 5 MG Apixaban 5 mg BID PO 08/03/25 10:00 08/04/25 09:02 5 MG Pantoprazole Sodium 40 mg BID PO 08/03/25 10:00 08/05/25 09:49 40 MG Patient Own Medication 40 mg DAILY PO 08/03/25 10:00 UNV Patient Own Medication 20 mg BID PO 08/03/25 10:00 UNV Patient Own Medication 12.5 mg DAILY PO 08/03/25 10:00 UNV Methylprednisolone Sodium Succinate 40 mg BID IV 08/03/25 10:00 08/05/25 09:48 40 MG Atorvastatin Calcium 40 mg HS PO 08/03/25 22:00 08/04/25 22:43 40 MG Hydrochlorothiazide 12.5 mg DAILY PO 08/04/25 10:00 08/05/25 09:49 12.5 MG Enalapril Maleate 20 mg BID PO 08/03/25 22:00 08/05/25 09:49 20 MG Ceftriaxone Sodium 50 ml @ 100 mls/hr DAILY@09 IV 08/04/25 09:00 08/05/25 09:47 100 MLS/HR Albuterol 2.5 mg Q6HWA NEB 08/04/25 18:00 08/05/25 12:02 2.5 MG Ipratropium [place] 0.5 mg Q6HWA NEB 08/04/25 18:00 08/05/25 12:02 0.5 MG Laboratory Results Laboratory Tests 08/04/25 05:30 Coagulation Test 08/04/25 14:14 D-Dimer, Quantitative 0.29 mg/L FEU (0.0-0.49) Urinalysis Test 08/03/25 21:30 Urine Color Yellow (Yellow) Urine Clarity Clear (Clear) Urine pH 5.5 (5.0-9.0) Urine Specific [place] 1.019 (1.001-1.035) Urine Protein Trace (Negative) H Urine Ketones Negative (Negative) Urine Blood Negative /uL (Negative) Urine Nitrite Negative (Negative) Urine Bilirubin Negative (Negative) Urine Urobilinogen Normal mg/dL (Negative) Urine Leukocyte Esterase Negative /uL (Negative) Urine RBC 1 /hpf (0 - 3) Urine Microscopic WBC 1 /HPF (0-3) Urine Squamous Epithelial Cells Few /hpf (<5) Urine Bacteria None seen /hpf (None Seen) Urine Mucus Few (None Seen) Urine Glucose Normal mg/dL (Normal) Microbiology Microbiology Date/Time Source Procedure Growth Status 08/02/25 23:24 Blood Blood Culture - Preliminary NO GROWTH AFTER 48 HOURS OF INCUBATION. Resulted Labs and/or images reviewed: Labs reviewed by me, Image(s) reviewed by me Assessment/Plan Assessment/Plan Impression: -acute hypoxic respiratory failure -rule out acute systolic heart failure -history of cardiac ablation with pacemaker implant -primary hypertension -GERD -history of nicotine dependence -ruled out ACS -community-acquired pneumonia, probable Gram-positive/Gram-negative etiology Plan: Events: Patient reports having burning and chest after breathing treatment with albuterol. -change bronchodilators to Xopenex and ipratropium. Add Pulmicort b.i.d.. Stop IV Solu-Medrol given resolution of wheezing. Start prednisone 40 mg p.o. daily. -pulmonology consultation -cardiology consultation: Discussed case with Dr. Hauser. -continue empiric antibiotic therapy -continue PPI -continue anticoagulation with Eliquis -repeat labs in a.m. Total time spent with patient discussing and formulating plan of care: 35 minutes. This medical document was created using an electronic medical record system with [email or web address] system. Although this document has been carefully reviewed, there may still be some phonetic and typographical errors. These areas are purely typographical due to imperfections of the software programs, and do not reflect any compromise in the patient's medical care. Plan discussed with: Patient, Other (RN) My Orders Orders - PATRICK GLASGOW NP Procedure Category Date Status Time Albuterol Medneb PHA 08/04/25 In Process (Ventolin Medneb) 18:00 Ipratropium Medneb PHA 08/04/25 In Process (Atrovent Medneb) 18:00 Date of Service: Aug 05, 2025 Billing Provider: PATRICK GLASGOW NP Common Visit Codes: [id number] INP/OBS CARE(HIGH) PATRICK GLASGOW NP Aug 05, 2025 14:07
--- NOTE | 2025-08-05 14:34 | DVHPN2 ---
Progress Note Date Seen: Aug 05, 2025 Medical Necessity Reason Pt with a Central, PICC or Fol: No Subjective Other Systems: ct shows infltrate Objective vital signs Vital Sign Date Time Temp Pulse Resp B/P (MAP) Pulse Ox O2 Delivery O2 Flow Rate FiO2 08/05/25 13:00 98.2 70 20 139/78 (98) 96 98.2 08/05/25 12:02 Nasal Cannula 2.0 08/05/25 12:02 28 Total Intake and Output 08/04/25 08/04/25 08/05/25 15:00 23:00 07:00 Intake Total 50 ml 0 ml 300 ml Balance 50 ml 0 ml 300 ml medications Current Medications Medications Dose Ordered Sig/Gordy Route Start Time Stop Time Status Last Admin Dose Admin Sodium Chloride 10 ml Q8HR IV 08/03/25 14:00 08/05/25 13:33 10 ML Acetaminophen/ Hydrocodone Bitart 1 tab Q4HP PRN PO 08/03/25 08:30 Ondansetron HCl 4 mg Q4HP PRN IV 08/03/25 08:30 Docusate Sodium 100 mg BIDPRN PRN PO 08/03/25 08:30 Acetaminophen 650 mg Q6HP PRN PO 08/03/25 08:30 Nitroglycerin 0.4 mg Q5MINP PRN SL 08/03/25 08:30 08/04/25 15:20 0.4 MG Morphine Sulfate 2 mg Q30M PRN IV 08/03/25 08:30 08/04/25 20:25 2 MG Amlodipine Besylate 5 mg BID PO 08/03/25 10:00 08/05/25 09:50 5 MG Apixaban 5 mg BID PO 08/03/25 10:00 08/04/25 09:02 5 MG Pantoprazole Sodium 40 mg BID PO 08/03/25 10:00 08/05/25 09:49 40 MG Patient Own Medication 40 mg DAILY PO 08/03/25 10:00 UNV Patient Own Medication 20 mg BID PO 08/03/25 10:00 UNV Patient Own Medication 12.5 mg DAILY PO 08/03/25 10:00 UNV Atorvastatin Calcium 40 mg HS PO 08/03/25 22:00 08/04/25 22:43 40 MG Hydrochlorothiazide 12.5 mg DAILY PO 08/04/25 10:00 08/05/25 09:49 12.5 MG Enalapril Maleate 20 mg BID PO 08/03/25 22:00 08/05/25 09:49 20 MG Ceftriaxone Sodium 50 ml @ 100 mls/hr DAILY@09 IV 08/04/25 09:00 08/05/25 09:47 100 MLS/HR Ipratropium [place] 0.5 mg Q6HWA [facility] 08/04/25 18:00 08/05/25 12:02 0.5 MG Levalbuterol HCl 0.625 mg Q6HWA [facility] 08/05/25 18:00 Budesonide 0.5 mg BID NEB 08/05/25 22:00 Prednisone 40 mg DAILY PO 08/06/25 10:00 Examination: GENERAL:Abnormal, HEENT:Abnormal, LUNGS:Abnormal, CVS:Abnormal, ABDOMEN:Abnormal laboratory and microbiology Laboratory Tests 08/04/25 05:30 Test 08/04/25 05:30 Range/Units Serum Glucose 163 H 74-106 mg/dL Microbiology Date/Time Source Procedure Growth Status 08/02/25 23:24 Blood Blood Culture - Preliminary NO GROWTH AFTER 48 HOURS OF INCUBATION. Resulted Problem List/Assessment/Plan Problem List/Assessment/Plan cad afbi s/p ablation hx of ppm PNA copd cont abx infiltrate on chest ct stress mpi shows no ischemia cont supportive care Plan discussed with: Patient Date of Service: Aug 05, 2025 Billing Provider: HANS ESPAÑA MD Common Visit Codes: NOT BILLABLE HANS ESPAÑA MD Aug 05, 2025 14:34
[2025-08-05] MEDS: BUDESONIDE (INHALATION) 0.5 MG/2 ML NEB NEB SCH (19:19)
[2025-08-05] MEDS: LEVALBUTEROL HCL 1.25 MG/3 ML NEB NEB SCH (19:19)
--- NOTE | 2025-08-05 19:42 | DVHINCON2 ---
Date of service: Aug 05, 2025 Referring Physician Jagdish Glasgow Np Reason for Consultation Acute respiratory failure History of Present Illness History Source: Patient Exam Limitations: No limitations HPI Patient is a 74-year old gentleman with a history of previous nicotine dependency, extensive cardiac history and probable COPD who presented with chest pain and cough with mucus production. Was seen in the emergency room where CT of the chest demonstrated patchy airspace disease suggestive of pneumonia and he was admitted for IV antibiotics. Patient required supplemental oxygen and pulmonology was consulted to assist in management. Home Meds Active Scripts Ipratropium [place] Hfa (Atrovent Hfa) 17 Mcg Aer, 2 PUFF INH QID PRN for 30 Days, #12.9 GRAMS 5 Refills Prov:PATRICK GLASGOW NP 08/06/25 Prednisone (Prednisone) 20 Mg Tab, 20 MG PO DAILY for 7 Days, #7 MG Prov:PATRICK GLASGOW NP 08/06/25 Cefdinir (Cefdinir) 300 Mg Cap, 1 CAP PO BID for 7 Days, #14 CAP Prov:PATRICK GLASGOW NP 08/06/25 Reported Medications Isosorbide Dinitrate (Isosorbide Dinitrate) 10 Mg Tab, 10 MG PO BID, TAB 11/27/24 Enalapril Maleate (Enalapril Maleate) 20 Mg Tab, 20 MG PO BID, TAB 11/27/24 Clopidogrel Bisulfate (CLOPIDOGREL) 75 Mg Tab, 75 MG PO DAILY, TAB 11/27/24 Atorvastatin Calcium (ATORVASTATIN CALCIUM) 40 Mg Tab, 40 MG PO DAILY, TAB 11/27/24 Hydrochlorothiazide (Hydrochlorothiazide) 12.5 Mg Tab, 12.5 MG PO DAILY, TAB 11/27/24 Apixaban Base (ELIQUIS) 5 Mg Tab, 5 MG PO BID, TAB 11/27/24 Amlodipine Besylate (Amlodipine Besylate) 5 Mg Tab, 5 MG PO BID, MG 11/27/24 Amiodarone Hcl (Amiodarone Hcl) 200 Mg Tab, 200 MG PO DAILY 11/27/24 Pantoprazole Sodium Sesquihydr (Pantoprazole Sodium) 40 Mg Tab, 40 MG PO BID, TAB 11/27/24 Discontinued Scripts Amoxicillin & Pot Clavulanate (AUGMENTIN TABLET) 875 Mg Tb, 875 MG PO BID for 3 Days, #6 TAB Prov:CLAUDY LANG RESIDENT 11/29/24 Past Medical History Cardiac: CAD Pulmonary: COPD Central Nervous System: No pertinent Hx GI: No pertinent Hx Hemotology/Oncology: No pertinent Hx Hepatobiliary: No pertinent Hx Psychiatric: No pertinent Hx Musculoskeletal: No pertinent Hx Rheumotologic: No pertinent Hx Infectious Disease: No peritnent Hx ENT: No pertinent Hx Renal/: No pertinent Hx Endocrine: No pertinent Hx Dermatology: No pertinent Hx Past Surgical History: PTCA Family History: CAD Patient Family History: FH: [place] (myocardial infarction) G8 MOTHER, G8 FATHER, Smoker: Quit Alocohol: None Drugs: None Lives with: With family Domestic Violence: Neg Review of Systems Constitutional: No symptom reported Ears, Nose, & Throat: No symptom reported Eyes: No symptom reported Pulmonary/Respiratory: Cough Cardiovascular: Chest Pain Gastrointestinal: No symptom reported Genitourinary: No symptom reported Musculoskeletal: No symptom reported Skin: No symptom reported Psychiatric: No symptom reported Endocrine: No symptom reported Hemotologic/Lymphatic: No symptom reported H&P Exam Vital Signs Vital Signs Date Time Temp Pulse Resp B/P (MAP) Pulse Ox O2 Delivery O2 Flow Rate FiO2 08/05/25 19:29 73 18 100 08/05/25 19:19 Nasal Cannula* 2 28 08/05/25 16:42 98.3 120/61 (80) 98.3 General Appeara: Well developed, Well nourished, Normal Appearance Head Exam: Normal inspection Neck Exam: Normal inspection, Non-tender, Normal alignment Eye Exam: bilateral eye Normal inspection, bilateral eye PERRL, bilateral eye EOMI Ear Exam: bilateral ear Auricle normal, bilateral ear Canal normal, bilateral ear TM normal Nasal Exam: Normal inspection Mouth: Normal Inspection Pulmonary/Respiratory: Decreased breath sounds Peripheral Pulses: 4+ Radial (R), 4+ Radial (L), 4+ Brachial (R), 4+ Brachial (L) Abdominal Exam: Normal bowel sounds Labs/Xrays Labs Test 08/04/25 14:15 08/04/25 14:14 08/04/25 05:30 08/03/25 21:30 Range/Units Influenza Type A Antigen Negative Negative Influenza Type B Antigen Negative Negative SARS-CoV-2 Antigen (Rapid) Negative NEGATIVE D-Dimer, Quantitative 0.29 0.0-0.49 mg/L FEU White Blood Count 9.4 # 4.4-10.8 10^3/uL Red Blood Count 3.92 L 4.5-5.90 10^6/uL Hemoglobin 12.5 L 13.5-17.5 g/dL Hematocrit 36.2 L 41.0-53.0 % Mean Corpuscular Volume 92.3 80.0-100.0 fL Mean Corpuscular Hemoglobin 32.0 28.0-32.0 pg Mean Corpuscular Hemoglobin Concent 34.6 32.0-36.0 g/dL Red Cell Distribution Width 14.7 H 11.8-14.3 % Platelet Count 216 140-450 10^3/uL Mean Platelet Volume 8.1 6.9-10.8 fL Neutrophils (%) (Auto) 88.0 H 37.0-80.0 % Lymphocytes (%) (Auto) 8.4 L 10.0-50.0 % Monocytes (%) (Auto) 3.5 0.0-12.0 % Eosinophils (%) (Auto) 0.0 0.0-7.0 % Basophils (%) (Auto) 0.1 0.0-2.0 % Neutrophils # (Auto) 8.3 1.6-8.6 10 ^3/uL Lymphocytes # (Auto) 0.8 0.4-5.4 10 ^3/uL Monocytes # (Auto) 0.3 0-1.3 10 ^3/uL Eosinophils # (Auto) 0 0-0.8 10 ^3/uL Basophils # (Auto) 0 0-0.2 10 ^3/uL Nucleated Red Blood Cells 0.0 % Sodium Level 133 L 136-145 mmol/L Potassium Level 4.5 3.5-5.1 mmol/L Chloride Level 101 98-107 mmol/L Carbon Dioxide Level 23 20-31 mmol/L Anion Gap 9 5-15 Blood Urea Nitrogen 19 9-23 mg/dL Creatinine 0.85 0.700-1.30 mg/dL Glomerular Filtration Rate Calc 91 >90 mL/min BUN/Creatinine Ratio 22.4 H 10.0-20.0 Serum Glucose 163 H 74-106 mg/dL Calcium Level 9.3 8.7-10.4 mg/dL Total Bilirubin 0.5 0.2-1.0 mg/dL Aspartate Amino Transferase (AST) 19 13-40 U/L Alanine Aminotransferase (ALT) 20 7-40 U/L Alkaline Phosphatase 92 46-116 U/L Total Protein 6.9 5.7-8.2 g/dL Albumin 4.5 3.2-4.8 g/dL Urine Color Yellow Yellow Urine Clarity Clear Clear Urine pH 5.5 5.0-9.0 Urine Specific [place] 1.019 1.001-1.035 Urine Protein Trace H Negative Urine Ketones Negative Negative Urine Blood Negative Negative /uL Urine Nitrite Negative Negative Urine Bilirubin Negative Negative Urine Urobilinogen Normal Negative mg/dL Urine Leukocyte Esterase Negative Negative /uL Urine RBC 1 0 - 3 /hpf Urine Microscopic WBC 1 0-3 /HPF Urine Squamous Epithelial Cells Few <5 /hpf Urine Bacteria None seen None Seen /hpf Urine Mucus Few None Seen Urine Glucose Normal Normal mg/dL Test 08/03/25 17:48 08/02/25 23:18 08/02/25 20:30 Range/Units Erythrocyte Sedimentation Rate 27 H 0-20 mm/hr C-Reactive Protein High Sensitivity 8.95 H <1.0 mg/dL Lactic Acid Level 1.3 0.4-2.0 mmol/L Troponin I High Sensitivity 4 </=54 ng/L B-Type Natriuretic Peptide 53.18 0-100 pg/mL Microbiology Date/Time Source Procedure Growth Status 08/02/25 23:24 Blood Blood Culture - Preliminary NO GROWTH AFTER 48 HOURS OF INCUBATION. Resulted Assessment/Plan Plan Impression Acute hypoxemic respiratory failure Probable COPD Former smoker Pneumonia Patient seen and examined Events Low oxygen requirements On 2 liters nasal cannula Vital signs stable Labs and imaging reviewed Management Supplemental oxygen Titrate to maintain sats 90% or above Incentive spirometry Antibiotics Bronchodilators Monitor renal function Monitor electrolytes Supplement as needed Patient would benefit from pulmonary follow up as outpatient DVT prophylaxis Plan discussed with: Patient CARISSA MARRERO MD Aug 05, 2025 19:42
[2025-08-06] VITALS (15 sets, daily range): BP systolic 110–141; BP diastolic 60–74; PULSE 68–90; RESP 16–19; TEMP 97.5–98.6; O2SAT 94–100
[2025-08-06] MEDS: predniSONE 20 MG TAB PO SCH (09:35)
[2025-08-06] MEDS ORDERED: PRED20TA2 PO (14:24)
[2025-08-06] MEDS ORDERED: CEFD300C2 PO (14:24)
[2025-08-06] MEDS ORDERED: IPRIH INH (14:24)
--- NOTE | 2025-08-06 14:31 | DVHPN2 ---
Subjective Patient reports shortness of breath has improved. Reviewed: Care Plan, H&P, Labs, Medications, Previous Orders Changes from previous H/P or p: No Changes General: Per HPI Eyes: No Pain, No Vision change, No Conjunctivae inflammation, No Eyelid inflammation, No Other, No Redness ENT: No Ear pain, No Ear discharge, No Nose pain, No Nose discharge, No Nose congestion, No Mouth pain, No Mouth swelling, No Throat pain, No Throat swelling, No Other Cardiovascular: Chest Pain; No Palpitations, No Orthopnea, No Paroxysmal Noc. Dyspnea, No Edema, No Lt Headedness, No Other Respiratory: No Cough, No Dry; Shortness of breath, SOB with excertion; No Wheezing, No Hemoptysis, No Pleuritic Pain, No Sputum, No Other Gastrointestinal: No Nausea, No Vomiting, No Abdominal Pain, No Diarrhea, No Constipation, No Melena, No Hematochezia, No Other Genitourinary: No Dysuria, No Frequency, No Incontinence, No Hematuria, No Retention, No Other Musculoskeletal: No other, No neck pain, No shoulder pain, No arm pain, No back pain, No hand pain, No leg pain, No foot pain Skin: No Rash, No Lesions, No Jaundice, No Bruising, No Other Objective Vitals Vital Signs Date Time Temp Pulse Resp B/P (MAP) Pulse Ox O2 Delivery O2 Flow Rate FiO2 08/06/25 13:21 98.0 68 17 141/66 (91) 96 98.0 08/06/25 11:55 Room Air 08/06/25 11:55 0 21 Intake/Output Intake and Output 08/06/25 07:00 Intake Total 2590 ml Balance 2590 ml Intake Oral 2540 ml IV Total 50 ml # Voids 8 General Appearance: Alert, Oriented X3, Cooperative, mild distress HEENT: Atraumatic, PERRLA Lungs: Clear to auscultation, Normal air movement Cardiovascular: Normal S1, Normal S2 Abdomen: Normal bowel sounds, Soft, No tenderness, No hepatospenomegaly Musculoskeletal: Normal sensory function, Normal motor function Skin: Dry, Intact Psych/Mental Status: Mental status NL, Mood NL Medications Current Medications Medications Dose Ordered Sig/Gordy Route Start Time Stop Time Status Last Admin Dose Admin Sodium Chloride 10 ml Q8HR IV 08/03/25 14:00 08/06/25 14:05 10 ML Acetaminophen/ Hydrocodone Bitart 1 tab Q4HP PRN PO 08/03/25 08:30 Ondansetron HCl 4 mg Q4HP PRN IV 08/03/25 08:30 Docusate Sodium 100 mg BIDPRN PRN PO 08/03/25 08:30 Acetaminophen 650 mg Q6HP PRN PO 08/03/25 08:30 Nitroglycerin 0.4 mg Q5MINP PRN SL 08/03/25 08:30 08/04/25 15:20 0.4 MG Morphine Sulfate 2 mg Q30M PRN IV 08/03/25 08:30 08/04/25 20:25 2 MG Amlodipine Besylate 5 mg BID PO 08/03/25 10:00 08/06/25 09:58 5 MG Apixaban 5 mg BID PO 08/03/25 10:00 08/06/25 09:35 5 MG Pantoprazole Sodium 40 mg BID PO 08/03/25 10:00 08/06/25 09:35 40 MG Patient Own Medication 40 mg DAILY PO 08/03/25 10:00 UNV Patient Own Medication 20 mg BID PO 08/03/25 10:00 UNV Patient Own Medication 12.5 mg DAILY PO 08/03/25 10:00 UNV Atorvastatin Calcium 40 mg HS PO 08/03/25 22:00 08/05/25 20:48 40 MG Hydrochlorothiazide 12.5 mg DAILY PO 08/04/25 10:00 08/06/25 09:59 12.5 MG Enalapril Maleate 20 mg BID PO 08/03/25 22:00 08/06/25 09:58 20 MG Ceftriaxone Sodium 50 ml @ 100 mls/hr DAILY@09 IV 08/04/25 09:00 08/06/25 09:20 100 MLS/HR Ipratropium [place] 0.5 mg Q6HWA NEB 08/04/25 18:00 08/06/25 11:55 0.5 MG Levalbuterol HCl 0.625 mg Q6HWA [facility] 08/05/25 18:00 08/06/25 11:55 0.625 MG Budesonide 0.5 mg BID NEB 08/05/25 22:00 08/06/25 07:44 0.5 MG Prednisone 40 mg DAILY PO 08/06/25 10:00 08/06/25 09:35 40 MG Laboratory Results Laboratory Tests 08/04/25 05:30 Urinalysis Test 08/03/25 21:30 Urine Color Yellow (Yellow) Urine Clarity Clear (Clear) Urine pH 5.5 (5.0-9.0) Urine Specific [place] 1.019 (1.001-1.035) Urine Protein Trace (Negative) H Urine Ketones Negative (Negative) Urine Blood Negative /uL (Negative) Urine Nitrite Negative (Negative) Urine Bilirubin Negative (Negative) Urine Urobilinogen Normal mg/dL (Negative) Urine Leukocyte Esterase Negative /uL (Negative) Urine RBC 1 /hpf (0 - 3) Urine Microscopic WBC 1 /HPF (0-3) Urine Squamous Epithelial Cells Few /hpf (<5) Urine Bacteria None seen /hpf (None Seen) Urine Mucus Few (None Seen) Urine Glucose Normal mg/dL (Normal) Microbiology Microbiology Date/Time Source Procedure Growth Status 08/02/25 23:24 Blood Blood Culture - Preliminary NO GROWTH AFTER 72 HOURS OF INCUBATION. Resulted Labs and/or images reviewed: Labs reviewed by me Assessment/Plan Assessment/Plan Impression: -acute hypoxic respiratory failure -rule out acute systolic heart failure -history of cardiac ablation with pacemaker implant -primary hypertension -GERD -history of nicotine dependence -ruled out ACS -community-acquired pneumonia, probable Gram-positive/Gram-negative etiology Plan: Events: Patient states that respiratory status has improved. Patient now on room air saturating 96% -continue prednisone, bronchodilators -pulmonology consultation -cardiology consultation: Discussed case with Dr. Hauser. -continue empiric antibiotic therapy -continue PPI -continue anticoagulation with Eliquis -plan for discharge in a.m. given persistent subjective dyspnea. Discharge prescriptions provided. Total time spent with patient discussing and formulating plan of care: 35 minutes. This medical document was created using an electronic medical record system with [employer] dictation system. Although this document has been carefully reviewed, there may still be some phonetic and typographical errors. These areas are purely typographical due to imperfections of the software programs, and do not reflect any compromise in the patient's medical care. Plan discussed with: Patient, Other (RN) Date of Service: Aug 06, 2025 Billing Provider: PATRICK GLASGOW [employer] Common Visit Codes: [id number] INP/OBS CARE(HIGH) PATRICK GLASGOW NP Aug 06, 2025 14:31
--- NOTE | 2025-08-06 15:04 | DVHPN2 ---
Progress Note - Dictate Date Seen: Aug 06, 2025 Medical Necessity Reason Pt with a Central, PICC or Fol: No vital signs Vital Sign Date Time Temp Pulse Resp B/P (MAP) Pulse Ox O2 Delivery O2 Flow Rate FiO2 08/06/25 13:21 98.0 68 17 141/66 (91) 96 98.0 08/06/25 11:55 Room Air 08/06/25 11:55 0 21 Total Intake and Output 08/05/25 08/05/25 08/06/25 15:00 23:00 07:00 Intake Total 50 ml 1680 ml 860 ml Balance 50 ml 1680 ml 860 ml medications Current Medications Medications Dose Ordered Sig/Gordy Route Start Time Stop Time Status Last Admin Dose Admin Sodium Chloride 10 ml Q8HR IV 08/03/25 14:00 08/06/25 14:05 10 ML Acetaminophen/ Hydrocodone Bitart 1 tab Q4HP PRN PO 08/03/25 08:30 Ondansetron HCl 4 mg Q4HP PRN IV 08/03/25 08:30 Docusate Sodium 100 mg BIDPRN PRN PO 08/03/25 08:30 Acetaminophen 650 mg Q6HP PRN PO 08/03/25 08:30 Nitroglycerin 0.4 mg Q5MINP PRN SL 08/03/25 08:30 08/04/25 15:20 0.4 MG Morphine Sulfate 2 mg Q30M PRN IV 08/03/25 08:30 08/04/25 20:25 2 MG Amlodipine Besylate 5 mg BID PO 08/03/25 10:00 08/06/25 09:58 5 MG Apixaban 5 mg BID PO 08/03/25 10:00 08/06/25 09:35 5 MG Pantoprazole Sodium 40 mg BID PO 08/03/25 10:00 08/06/25 09:35 40 MG Patient Own Medication 40 mg DAILY PO 08/03/25 10:00 UNV Patient Own Medication 20 mg BID PO 08/03/25 10:00 UNV Patient Own Medication 12.5 mg DAILY PO 08/03/25 10:00 UNV Atorvastatin Calcium 40 mg HS PO 08/03/25 22:00 08/05/25 20:48 40 MG Hydrochlorothiazide 12.5 mg DAILY PO 08/04/25 10:00 08/06/25 09:59 12.5 MG Enalapril Maleate 20 mg BID PO 08/03/25 22:00 08/06/25 09:58 20 MG Ceftriaxone Sodium 50 ml @ 100 mls/hr DAILY@09 IV 08/04/25 09:00 08/06/25 09:20 100 MLS/HR Ipratropium [place] 0.5 mg Q6HWA NEB 08/04/25 18:00 08/06/25 11:55 0.5 MG Levalbuterol HCl 0.625 mg Q6HWA NEB 08/05/25 18:00 08/06/25 11:55 0.625 MG Budesonide 0.5 mg BID NEB 08/05/25 22:00 08/06/25 07:44 0.5 MG Prednisone 40 mg DAILY PO 08/06/25 10:00 08/06/25 09:35 40 MG laboratory and microbiology Laboratory Tests 08/04/25 05:30 Test 08/04/25 05:30 Range/Units Serum Glucose 163 H 74-106 mg/dL Assessment/Plan Impression Acute hypoxemic respiratory failure Probable COPD Former smoker Pneumonia Patient seen and examined Events Low oxygen requirements On 2 liters nasal cannula No acute events Labs and imaging reviewed Management Supplemental oxygen Titrate to maintain sats 90% or above Incentive spirometry Continue antibiotics F/u cultures Bronchodilators Monitor renal function Monitor electrolytes Supplement as needed Patient would benefit from pulmonary follow up as outpatient Home oxygen evaluation prior to discharge DVT prophylaxis Plan discussed with: Patient CARISSA MARRERO MD Aug 06, 2025 15:04
[2025-08-07] VITALS (12 sets, daily range): BP systolic 115–143; BP diastolic 61–82; PULSE 66–88; RESP 16–18; TEMP 97.7–98.6; O2SAT 93–99
--- NOTE | 2025-08-07 14:14 | DVHPN2 ---
Progress Note - Dictate Date Seen: Aug 07, 2025 Medical Necessity Reason Pt with a Central, PICC or Fol: No vital signs Vital Sign Date Time Temp Pulse Resp B/P (MAP) Pulse Ox O2 Delivery O2 Flow Rate FiO2 08/07/25 12:56 72 16 99 08/07/25 12:47 Room Air 08/07/25 12:47 0 21 08/07/25 12:36 97.7 143/68 (93) 97.7 Total Intake and Output 08/06/25 08/06/25 08/07/25 15:00 23:00 07:00 Intake Total 490 ml 600 ml 1240 ml Balance 490 ml 600 ml 1240 ml medications Current Medications Medications Dose Ordered Sig/Gordy Route Start Time Stop Time Status Last Admin Dose Admin Sodium Chloride 10 ml Q8HR IV 08/03/25 14:00 08/07/25 05:44 10 ML Acetaminophen/ Hydrocodone Bitart 1 tab Q4HP PRN PO 08/03/25 08:30 Ondansetron HCl 4 mg Q4HP PRN IV 08/03/25 08:30 Docusate Sodium 100 mg BIDPRN PRN PO 08/03/25 08:30 Acetaminophen 650 mg Q6HP PRN PO 08/03/25 08:30 Nitroglycerin 0.4 mg Q5MINP PRN SL 08/03/25 08:30 08/04/25 15:20 0.4 MG Morphine Sulfate 2 mg Q30M PRN IV 08/03/25 08:30 08/04/25 20:25 2 MG Amlodipine Besylate 5 mg BID PO 08/03/25 10:00 08/07/25 08:57 5 MG Apixaban 5 mg BID PO 08/03/25 10:00 08/07/25 08:57 5 MG Pantoprazole Sodium 40 mg BID PO 08/03/25 10:00 08/07/25 08:57 40 MG Patient Own Medication 40 mg DAILY PO 08/03/25 10:00 UNV Patient Own Medication 20 mg BID PO 08/03/25 10:00 UNV Patient Own Medication 12.5 mg DAILY PO 08/03/25 10:00 UNV Atorvastatin Calcium 40 mg HS PO 08/03/25 22:00 08/06/25 22:04 40 MG Hydrochlorothiazide 12.5 mg DAILY PO 08/04/25 10:00 08/07/25 08:58 12.5 MG Enalapril Maleate 20 mg BID PO 08/03/25 22:00 08/07/25 08:57 20 MG Ceftriaxone Sodium 50 ml @ 100 mls/hr DAILY@09 IV 08/04/25 09:00 08/07/25 08:55 100 MLS/HR Ipratropium [place] 0.5 mg Q6HWA NEB 08/04/25 18:00 08/07/25 12:46 0.5 MG Levalbuterol HCl 0.625 mg Q6HWA NEB 08/05/25 18:00 08/07/25 12:46 0.625 MG Budesonide 0.5 mg BID NEB 08/05/25 22:00 08/07/25 07:56 0.5 MG Prednisone 40 mg DAILY PO 08/06/25 10:00 08/07/25 08:57 40 MG laboratory and microbiology Laboratory Tests 08/04/25 05:30 Test 08/04/25 05:30 Range/Units Serum Glucose 163 H 74-106 mg/dL Assessment/Plan Impression Acute hypoxemic respiratory failure Probable COPD Former smoker Pneumonia Patient seen and examined Events Low oxygen requirements On room air No distress Labs and imaging reviewed Management Supplemental oxygen as needed Titrate to maintain sats 90% or above Incentive spirometry Continue antibiotics F/u cultures Bronchodilators Monitor renal function Monitor electrolytes Supplement as needed Patient would benefit from pulmonary follow up as outpatient Okay to discharge from pulmonary standpoint DVT prophylaxis Plan discussed with: Patient CARISSA MARRERO MD Aug 07, 2025 14:14
--- NOTE | 2025-08-07 18:53 | DVHDS2 ---
Discharge Summary Date of Admission Aug 03, 2025 at 08:21 Date of Discharge: Aug 07, 2025 Labs/Diagnostic Data: Laboratory Results Test 08/04/25 14:15 08/04/25 14:14 08/04/25 05:30 08/03/25 21:30 Influenza Type A Antigen Negative (Negative) Influenza Type B Antigen Negative (Negative) SARS-CoV-2 Antigen (Rapid) Negative (NEGATIVE) D-Dimer, Quantitative 0.29 mg/L FEU (0.0-0.49) White Blood Count 9.4 10^3/uL (4.4-10.8) Red Blood Count 3.92 10^6/uL (4.5-5.90) Hemoglobin 12.5 g/dL (13.5-17.5) Hematocrit 36.2 % (41.0-53.0) Mean Corpuscular Volume 92.3 fL (80.0-100.0) Mean Corpuscular Hemoglobin 32.0 pg (28.0-32.0) Mean Corpuscular Hemoglobin Concent 34.6 g/dL (32.0-36.0) Red Cell Distribution Width 14.7 % (11.8-14.3) Platelet Count 216 10^3/uL (140-450) Mean Platelet Volume 8.1 fL (6.9-10.8) Neutrophils (%) (Auto) 88.0 % (37.0-80.0) Lymphocytes (%) (Auto) 8.4 % (10.0-50.0) Monocytes (%) (Auto) 3.5 % (0.0-12.0) Eosinophils (%) (Auto) 0.0 % (0.0-7.0) Basophils (%) (Auto) 0.1 % (0.0-2.0) Neutrophils # (Auto) 8.3 10 ^3/uL (1.6-8.6) Lymphocytes # (Auto) 0.8 10 ^3/uL (0.4-5.4) Monocytes # (Auto) 0.3 10 ^3/uL (0-1.3) Eosinophils # (Auto) 0 10 ^3/uL (0-0.8) Basophils # (Auto) 0 10 ^3/uL (0-0.2) Nucleated Red Blood Cells 0.0 % Sodium Level 133 mmol/L (136-145) Potassium Level 4.5 mmol/L (3.5-5.1) Chloride Level 101 mmol/L (98-107) Carbon Dioxide Level 23 mmol/L (20-31) Anion Gap 9 (5-15) Blood Urea Nitrogen 19 mg/dL (9-23) Creatinine 0.85 mg/dL (0.700-1.30) Glomerular Filtration Rate Calc 91 mL/min (>90) BUN/Creatinine Ratio 22.4 (10.0-20.0) Serum Glucose 163 mg/dL (74-106) Calcium Level 9.3 mg/dL (8.7-10.4) Total Bilirubin 0.5 mg/dL (0.2-1.0) Aspartate Amino Transferase (AST) 19 U/L (13-40) Alanine Aminotransferase (ALT) 20 U/L (7-40) Alkaline Phosphatase 92 U/L (46-116) Total Protein 6.9 g/dL (5.7-8.2) Albumin 4.5 g/dL (3.2-4.8) Urine Color Yellow (Yellow) Urine Clarity Clear (Clear) Urine pH 5.5 (5.0-9.0) Urine Specific Bells 1.019 (1.001-1.035) Urine Protein Trace (Negative) Urine Ketones Negative (Negative) Urine Blood Negative /uL (Negative) Urine Nitrite Negative (Negative) Urine Bilirubin Negative (Negative) Urine Urobilinogen Normal mg/dL (Negative) Urine Leukocyte Esterase Negative /uL (Negative) Urine RBC 1 /hpf (0 - 3) Urine Microscopic WBC 1 /HPF (0-3) Urine Squamous Epithelial Cells Few /hpf (<5) Urine Bacteria None seen /hpf (None Seen) Urine Mucus Few (None Seen) Urine Glucose Normal mg/dL (Normal) Test 08/03/25 17:48 08/02/25 23:18 08/02/25 20:30 Erythrocyte Sedimentation Rate 27 mm/hr (0-20) C-Reactive Protein High Sensitivity 8.95 mg/dL (<1.0) Lactic Acid Level 1.3 mmol/L (0.4-2.0) Troponin I High Sensitivity 4 ng/L (</=54) B-Type Natriuretic Peptide 53.18 pg/mL (0-100) Other Laboratory Tests 08/04/25 05:30 Brief Hx & Hospital Course: 74 yo M admitted for SOB. active smoker, found to have PNA, covered with iv abx. have o2 requirements. also was given steroid. after 4 dose of iv abx improved, no more o2 recs. seen by cardio and pulm.meds was sent yesterday. [place]. Condition at Discharge: Good Final Diagnosis/Problems List -acute hypoxic respiratory failure -ruled out acute systolic heart failure -history of cardiac ablation with pacemaker implant -primary hypertension -GERD -history of nicotine dependence -ruled out ACS -community-acquired pneumonia, probable Gram-positive/Gram-negative etiology Discharge Disposition: Home Discharge Instruct/Medications Diet: Consistent carbohydrate, Cardiac 2g Na,low cholest Activity: No Restrictions, As Tolerated Scheduled Amiodarone Hcl (Amiodarone Hcl), 200 MG PO DAILY, (Reported) Amlodipine Besylate (Amlodipine Besylate), 5 MG PO BID, (Reported) Apixaban Base (Eliquis), 5 MG PO BID, (Reported) Atorvastatin Calcium (Atorvastatin Calcium), 40 MG PO DAILY, (Reported) Cefdinir (Cefdinir), 1 CAP PO BID Clopidogrel Bisulfate (Clopidogrel), 75 MG PO DAILY, (Reported) Enalapril Maleate (Enalapril Maleate), 20 MG PO BID, (Reported) Hydrochlorothiazide (Hydrochlorothiazide), 12.5 MG PO DAILY, (Reported) Isosorbide Dinitrate (Isosorbide Dinitrate), 10 MG PO BID, (Reported) Pantoprazole Sodium Sesquihydr (Pantoprazole Sodium), 40 MG PO BID, (Reported) Prednisone (Prednisone), 20 MG PO DAILY Scheduled PRN Ipratropium Montour Hfa (Atrovent Hfa), 2 PUFF INH QID PRN Discontinued Medications Amoxicillin & Pot Clavulanate (Augmentin Tablet), 875 MG PO BID Discharge Statement: "Patient was advised to return to the ER or call 911 if any headaches, dizziness, shortness of breath, chest pain, abdominal pain, bleeding, fevers, or worsening of medical condition. Patient was counseled about treatment plan, medications, possible side effects, patientverbalized understanding. All questions were answered to the best of my ability. This discharge took greater then 30 minutes in planning, reviewing documentation, counseling the patient, and discussing with other team members." ASSESSMENT ASSESSMENT Assessment COPDe Date of Service: Aug 07, 2025 Billing Provider: ZHAO ZHU MD Common Visit Codes: 37411-OTM/OBS DISCH DAY >30min ZHAO ZHU MD Aug 07, 2025 18:53
== END 2025-08-07 15:48 | disposition home or self-care (01) | DRG 177 ==
LOC: EDBD 20:10 → ER 20:10 → OVERFLOW 08-03 08:21 → TELE-WESTW 08-03 22:40
PROVIDERS: ADMIT Nurse Practitioner Acute Care; ATTEND Nurse Practitioner Acute Care
DX: J15.69 Pneumonia due to other Gram-negative bacteria (principal); J96.01 Acute respiratory failure with hypoxia; J44.0 Chronic obstructive pulmonary disease with (acute) lower respiratory infection; Z20.822 Contact with and (suspected) exposure to COVID-19; K21.9 Gastro-esophageal reflux disease without esophagitis; I10 Essential (primary) hypertension; E78.5 Hyperlipidemia, unspecified; I48.91 Unspecified atrial fibrillation; J15.9 Unspecified bacterial pneumonia; I25.10 Atherosclerotic heart disease of native coronary artery without angina pectoris; Z79.2 Long term (current) use of antibiotics; Z79.01 Long term (current) use of anticoagulants; Z79.899 Other long term (current) drug therapy; I25.2 Old myocardial infarction; Z90.49 Acquired absence of other specified parts of digestive tract; Z82.49 Family history of ischemic heart disease and other diseases of the circulatory system; Z95.5 Presence of coronary angioplasty implant and graft; Z95.0 Presence of cardiac pacemaker; Z79.02 Long term (current) use of antithrombotics/antiplatelets; Z87.891 Personal history of nicotine dependence; Z86.73 Personal history of transient ischemic attack (TIA), and cerebral infarction without residual deficits
CPT/HCPCS: 36415; 71045; 71250; 78452; 80048; 80053; 81001; 83605; 83880; 84484; 85025; 85379; 85652; 86141; 87040; 87426; 87804; 93005; 93017; 94640; 99291; G0378; J0692

== ENCOUNTER → 2025-09-02 | Outpatient (CLI) | payer MEDICARE ==
[~2025-09-02] MED LIST changes: -AUG875T PO; +CEFD300C2 PO; +IPRIH INH; +PRED20TA2 PO
[2025-09-02 13:12] LABS: Hematocrit 37.6 % (41.0-53.0); Hemoglobin 12.8 g/dL (13.5-17.5); Mean Corpuscular Hemoglobin 31.8 pg (28.0-32.0); Mean Corpuscular Volume 93.3 fL (80.0-100.0); Nucleated Red Blood Cells % 0.0 %
[2025-09-02 13:43] LABS: Alanine Aminotransferase 23 U/L (7-40); Albumin 4.5 g/dL (3.2-4.8); Alkaline Phosphatase 102 U/L (46-116); Anion Gap 10 (5-15); BUN/Creatinine Ratio 12.1 (10.0-20.0); Blood Urea Nitrogen 13 mg/dL (9-23); Calcium 9.3 mg/dL (8.7-10.4); Carbon Dioxide 26 mmol/L (20-31); Chloride 99 mmol/L (98-107); Glucose 97 mg/dL (74-106); Potassium 4.5 mmol/L (3.5-5.1); Total Protein 7.2 g/dL (5.7-8.2)
[2025-09-02 13:44] LABS: Bilirubin, Total 0.7 mg/dL (0.2-1.0)
[2025-09-02 13:45] LABS: Sodium 135 mmol/L (136-145)
== END | disposition home or self-care (01) ==
LOC: LAB 12:57
PROVIDERS: ATTEND Internal Medicine
DX: I10 Essential (primary) hypertension (principal); Z12.5 Encounter for screening for malignant neoplasm of prostate; I48.0 Paroxysmal atrial fibrillation; R73.03 Prediabetes; Z79.899 Other long term (current) drug therapy
CPT/HCPCS: 36415; 80053; 84153; 84443; 85025